=== PATIENT | male | born 1960 | race Caucasian/White ===

== ENCOUNTER 2018-02-11 13:26 | Inpatient (IN) | payer MEDICAID, OTHER ==
--- NOTE | 2018-02-11 14:24 | ED ---
General Adult HPI - General Chief complaint: Psychiatric Symptoms Stated complaint: Mental health Time Seen by Provider: 02/11/18 13:30 Source: police, RN notes reviewed Mode of arrival: ambulatory Limitations: no limitations - History of Present Illness Initial comments: This is a 57-year-old male who is brought in by the police under a court order. Patient was verbally abusive and was threatening to kill the whole city and was extremely agitated. It was determined that the patient needed to be evaluated but the patient refused to be evaluated because he stated his God does not let him be evaluated. He refused so many of his past medical history other than he is completely normal and is free to speak his mind as he sees fit. Patient won't answer any other questions at this time. He denies any physical problems however - Related Data Allergies Allergy/AdvReac Type Severity Reaction Status Date / Time No Known Allergies Allergy Verified 02/11/18 13:36 Review of Systems ROS Statement: Those systems with pertinent positive or pertinent negative responses have been documented in the HPI. ROS Other: All systems not noted in ROS Statement are negative. Past Medical History Past Medical History: No Reported History History of Any Multi-Drug Resistant Organisms: None Reported Past Surgical History: No Surgical Hx Reported Past Psychological History: Anxiety, Bipolar, Depression Smoking Status: Current every day smoker Past Alcohol Use History: None Reported Past Drug Use History: Marijuana General Exam - General Exam Comments Initial Comments: GENERAL: Patient is well-developed and well-nourished. Patient is nontoxic and well- hydrated and is in no acute distress. ENT Neck is soft and supple. No significant lymphadenopathy is noted. Oropharynx is clear. Moist mucous membranes. Neck has full range of motion without eliciting any pain. EYES: The sclera were anicteric and conjunctiva were pink and moist. Extraocular movements were intact and pupils were equal round and reactive to light. Eyelids were unremarkable. PULMONARY: Unlabored respirations. Good breath sounds bilaterally. No audible rales rhonchi or wheezing was noted. CARDIOVASCULAR: There is a regular rate and rhythm without any murmurs gallops or rubs. ABDOMEN: Soft and nontender with normal bowel sounds. SKIN: Skin is clear with no lesions or rashes and otherwise unremarkable. NEUROLOGIC: Patient is alert and oriented x3. Cranial nerves II through XII are grossly intact. Motor and sensory are also intact. Normal speech, volume and content. Symmetrical smile. MUSCULOSKELETAL: Normal extremities with adequate strength and full range of motion. LYMPHATICS: No significant lymphadenopathy is noted PSYCHIATRIC: Patient denies being found or suicidal but he states God won't let him believe the diagnoses from his doctor and he is very agitated and uncooperative Limitations: no limitations Course Vital Signs 02/11/18 13:32 Temperature 97.9 F Pulse Rate 60 Respiratory 18 Rate Blood Pressure 126/48 O2 Sat by Pulse 99 Oximetry Disposition Clinical Impression: Acute psychosis Disposition: ADMITTED IP TO THIS HOSP Referrals: None,Stated [Primary Care Provider] - 1-2 days Time of Disposition: 16:54
[2018-02-11] MEDS ORDERED: LORazepam 2 MG/ML INJ IM STA (16:50)
[2018-02-11] MEDS ORDERED: ZIPRASIDONE 20 MG VIAL IM STA (16:50)
[2018-02-11] MEDS ORDERED: ZIPRASIDONE 20 MG VIAL IM PRN (18:05)
[2018-02-11] MEDS ORDERED: MAG HYDROX/AL HYDROX/SIMETH 30 ML CUP PO PRN (18:05)
[2018-02-11] MEDS ORDERED: MAGNESIUM HYDROXIDE 2,400 MG/10 ML CUP PO PRN (18:05)
[2018-02-11] MEDS ORDERED: ACETAMINOPHEN TAB 325 MG TAB PO PRN (18:05)
[2018-02-11] MEDS ORDERED: LORazepam 1 MG TAB PO PRN (18:05)
[2018-02-11] MEDS ORDERED: LORazepam 2 MG/ML INJ IM PRN (18:07)
--- NOTE | 2018-02-11 22:51 | P.HPMEDMHU ---
History of Present Illness H&P Date: 02/11/18 Chief Complaint: MH U HPI The patient is a 57-year-old male that was brought here to the mental health unit recommended for admission after presenting here with the police officers under court order. Apparently the patient was being increasingly aggressive and threatening and was supposedly pretty paranoid, the patient denied any suicidal or homicidal ideation, but was pretty irate and angry. Patient denies any significant medical history denies any chest pain or shortness of breath, the patient was initially irate and loud but became cooperative with answering questions and allowing me to do a physical, he does report a history of smoking denies any history of alcohol use. Past Medical History Past Medical History: No Reported History History of Any Multi-Drug Resistant Organisms: None Reported Past Surgical History: No Surgical Hx Reported Past Psychological History: Anxiety, Bipolar, Depression Smoking Status: Current every day smoker Past Alcohol Use History: None Reported Past Drug Use History: Marijuana Medications and Allergies Allergies Allergy/AdvReac Type Severity Reaction Status Date / Time No Known Allergies Allergy Verified 02/11/18 13:36 Physical Exam Vitals: Vital Signs Temp Pulse Pulse Resp BP BP Pulse Ox 02/11/18 18:39 97.9 F 55 L 16 127/66 02/11/18 13:32 97.9 F 60 18 126/48 99 Intake and Output 02/11/18 02/11/18 02/11/18 06:59 14:59 22:59 Other: Weight 70.171 kg 69.853 kg Constitutional: No acute distress, conversant Eyes: Anicteric sclerae, moist conjunctiva, no lid-lag, PERRLA ENMT: NC/AT,Oropharynx clear, no erythema, exudates Neck:Supple, FROM, no masses, or JVD, No carotid bruits; No thyromegaly Lungs: Clear to auscultation, Clear to percussion, Normal respiratory effort, no accessory muscle use Cardiovascular: Heart regular in rate and rhythm, No murmurs, gallops, or rubs no peripheral edema Abdominal: Soft Nontender, nom distended, no guarding, no rebound or rigidity, Normoactive bowel sounds No hepatomegaly, No splenomegaly, No palpable mass No abdominal wall hernia noted Skin: Normal temperature, tone, texture, turgor, No induration No subcutaneous nodules, No rash, lesions, No ulcers Extremities:No digital cyanosis No clubbing, Pedal pulses intact and symmetrical Radial pulses intact and symmetrical Normal gait and station, No calf tenderness Psychiatric: Alert and oriented to person, place and time, Appropriate affect Intact judgement Neuro: Muscles Strength 5/5 in all 4 extremities, Sensation to light touch grossly present throughout, Cranial nerves II-XII grossly intact. No focal sensory deficits Cranial Nerve Examination - Cranial Nerves Cranial Nerve II- Optic: Intact Cranial Nerve III- Oculomotor: Intact Cranial Nerve IV- Trochlear: Intact Cranial Nerve V- Trigeminal: Intact Cranial Nerve - Abducens: Intact Cranial Nerve VII- Facial: Intact Cranial Nerve VIII- Auditory: Intact Cranial Nerve IX- Glossopharyngeal: Intact Cranial Nerve X- Vagus: Intact Cranial Nerve XI- Accessory: Intact Cranial Nerve XII- Hypoglossal: Intact Assessment and Plan (1) Acute psychosis Current Visit: Yes Status: Acute Code(s): F23 - BRIEF PSYCHOTIC DISORDER SNOMED Code(s): 37856494 (2) Aggressive behavior of adult Current Visit: Yes Status: Acute Code(s): F60.89 - OTHER SPECIFIC PERSONALITY DISORDERS SNOMED Code(s): 73885425 (3) Smoking Current Visit: Yes Status: Acute Code(s): F17.200 - NICOTINE DEPENDENCE, UNSPECIFIED, UNCOMPLICATED SNOMED Code(s): 82596612 Plan: The patient was admitted to the mental health unit we'll defer to acute inpatient psychiatric team regarding ongoing therapy with psychotropics and CBT the patient's acute psychosis, reports patient was initially agitated and physically aggressive. However with me the patient was conversant, appropriate and was not agitated. He was clearly angry at being petition to come here. The patient denied any chronic medical issues other than smoking and he refused to have a nicotine patch. Patient is otherwise medically stable we'll plan to sign off pending his admission lab work I appreciate the opportunity to be involved in ongoing care of this patient, further questions please hesitate to contact the sound inpatient team.
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
[2018-02-12] MEDS: PALIPERIDONE 6 MG TAB.ER.24 PO SCH (19:57)
[2018-02-12] MEDS ORDERED: ZIPRASIDONE 20 MG VIAL IM ONE (20:30)
[2018-02-12] MEDS ORDERED: ASPIRIN 81 MG PO STA (21:44)
--- NOTE | 2018-02-12 21:58 | P.MHFACE ---
Face to Face Eval of Restraint - Evaluation Patient's Immediate Situation: Endangers others' safety, Endangers staff safety , Violent behavior Patient's Reaction to the Intervention: Angry, Hostile, Aggressive, Combative, Resistive to care Patient's Medical & Behavioral Condition: Awake, Alert, Agitated, Paranoid Need to Continue or Terminate Restraint or Seclusion: Continue (patient also complained of left sided nipple pain / chest pain and neck spasm after his violent behavior and being placed in restraints. however, he declined my offer to get some blood work done and EKG done to rule out ACS.)
[2018-02-12] MEDS ORDERED: ASPIRIN 325 MG TAB PO STA (22:05)
--- NOTE | 2018-02-12 22:31 | XR ---
EXAMINATION TYPE: XR cervical spine limited DATE OF EXAM: 02/12/2018 COMPARISON: NONE HISTORY: Neck pain TECHNIQUE: 3 views FINDINGS: Vertebra have normal alignment. Posterior element are intact. There is mild anterior spurri ng at C4-5 C5-6. Atlantoaxial facet joint is normal. There are no cervical ribs. IMPRESSION: Mild spondylosis in the lower cervical spine. No fracture.
[2018-02-13 03:58] LABS: Basophils # (A) 0.1 k/uL (0-0.2); Basophils % (A) 1 %; Eosinophils # (A) 0.3 k/uL (0-0.7); Eosinophils % (A) 4 %; HCT 43.8 % (39.0-53.0); HGB 14.8 gm/dL (13.0-17.5); Lymphocytes # (A) 2.1 k/uL (1.0-4.8); Lymphocytes % (A) 23 %; MCH 31.4 pg (25.0-35.0); MCHC 33.8 g/dL (31.0-37.0); MCV 92.8 fL (80.0-100.0); Mean Platelet Volume 6.6; Monocytes # (A) 0.4 k/uL (0-1.0); Monocytes % (A) 5 %; Neutrophils # (A) 6.1 k/uL (1.3-7.7); Neutrophils % (A) 67 %; Platelet Count 231 k/uL (150-450); RBC 4.72 m/uL (4.30-5.90); RDW 12.7 % (11.5-15.5); WBC 9.1 k/uL (3.8-10.6)
[2018-02-13 04:09] LABS: ALT 40 U/L (21-72); AST 55 U/L (17-59); Albumin 3.5 g/dL (3.5-5.0); Alkaline Phosphatase 63 U/L (38-126); Anion Gap 8 mmol/L; Blood Urea Nitrogen 14 mg/dL (9-20); Calcium 9.2 mg/dL (8.4-10.2); Carbon Dioxide 24 mmol/L (22-30); Chloride 106 mmol/L (98-107); Glucose 91 mg/dL (74-99); Potassium 3.9 mmol/L (3.5-5.1); Sodium 138 mmol/L (137-145); Total Bilirubin 0.5 mg/dL (0.2-1.3); Total Protein 5.7 g/dL (6.3-8.2)
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
[2018-02-13] MEDS: PALIPERIDONE 6 MG TAB.ER.24 PO SCH (20:46)
--- NOTE | 2018-02-14 17:32 | P.PN ---
Progress Note - Text Progress Note Date: 02/14/18 Interval history: [place] [facility] [place] He was agreeable to come to the interview room after some discussion in his room. He is seen with male staff present. He makes reference to not taking his prescribed medication. He seems to relay that he slept well last night. He wonders about when he will be discharged. Mental status exam: He is alert, cooperative with coming to the interview room. He uses profanity, has evidence of some disorganized thought processes. When asked about attending groups he makes reference/asks if they have a group for child killers. He makes reference to the inside steward/stewardess. He does not seem to verbalize any active thoughts of harm to self or others. He presents as irritable. Plan: We'll continue to monitor for medication compliance. We'll continue to cover this patient for the weekend.
[2018-02-14] MEDS: PALIPERIDONE 6 MG TAB.ER.24 PO SCH (20:48)
--- NOTE | 2018-02-15 13:49 | P.PN ---
Progress Note - Text Progress Note Date: 02/15/18 Interval history: Patient seen again in [facility] today. He is found in the hallway near the dining room where he had his lunch. He is agreeable for the interview in the interview room after initially wanting to talk in the hallway. He relates that he doesn't feel he needs the medication. He makes reference to clinicians at [facility] and the doctors should give him mechanical tools. Makes a reference to the feeling that he has been judged. Mental status exam: He is alert and cooperative with coming to the interview room. His mood is described as "joyous." He does not make any statements about harm to self or others. He does curse during the exam. He does present as irritable. His thought processes show some disorganization. He makes a reference to [facility] clinicians and doctors should give him mechanical tools. Makes reference to feeling that he has been judged. Plan: We'll monitor for medication compliance. Continue to monitor his ongoing status.
[2018-02-15] MEDS: PALIPERIDONE 6 MG TAB.ER.24 PO SCH (22:24)
--- NOTE | 2018-02-16 10:02 | P.PN ---
Progress Note - Text Interval history: The patient is found in his room lying in bed he is awake. He abruptly sits up for the interview. He refers to me as Dr. Vann and a dope pusher. He demands to know when he will be released. He spontaneously describes a variety of persecutory thoughts and uses profanity in a copious fashion. The session was terminated due to his level of agitation. Mental status exam: The patient has a disheveled appearance impaired hygiene. Affect is significantly irritable. He speaks in a loud tone and is verbally aggressive. He demonstrates delusions of persecution which include staff and myself. Insight and judgment are poor. He demonstrates no abnormal involuntary movements. He answers no questions regarding his cognitive status. Plan: The patient remains acutely psychotic and he is refusing antipsychotic medication. He primarily is isolating in his room. Vital signs reviewed. We are awaiting a court hearing. We will continue to monitor him for safety.
[2018-02-16] MEDS: PALIPERIDONE 6 MG TAB.ER.24 PO SCH (21:38)
--- NOTE | 2018-02-17 04:05 | P.PN ---
Progress Note - Text Progress Note Date: 02/17/18 I was called by RN to see patient for chest pain. He reported stabbing left nipple chest pain with no radiation, worse with motion and touch. denies any nausea or vomiting, denies any dizziness. He reports that he had that celso for about 30 days now and refuses to take any pain meds PO. he reported similar chest pain few days ago and had negative cardiac enzymes and negative EKG. EKG done this time, showed sinus bradycardia otherwise asymptomatic. Orthostatic vital sings negative. Chest clear to auscultation bilaterally normal S1 S2 heart sounds, no murmurs, bradycardia in the mid 40s asymptomatic otherwise vital signs stable cycle cardiac enzymes to r/o ACS monitor vital sings patient pain most likely related to muskuloskeletal origin, patient denies any history of CAD he refuses pain meds PO
--- NOTE | 2018-02-17 11:02 | P.PN ---
Progress Note - Text Interval history: The patient is found in his room. Staff report he did get up and eat breakfast in the hallway. He reported he showered. He remains irritable and agitated. He indicates he is frustrated with a male peer. The patient reported again symptoms of chest pain. He has been evaluated again EKG was performed as well as another troponin level. He does have some history of bradycardia. The patient's resting in his room comfortably. Mental status exam: The patient is alert he is a disheveled appearance. He is easily agitated. He continues to refuse medication and demands to be discharged. This demonstrates impaired insight and judgment. He provides no eye contact during the interaction. He uses profanity during the conversation. He demonstrates no physical aggressiveness. He demonstrates no abnormal involuntary movements. He tolerates no further questioning today. Plan: The patient continues to demonstrate symptoms of acute agitation with psychosis. He has been refusing medication. He has been followed by internal medicine with no acute findings. He has a deferral conference scheduled for today and a full court hearing on Friday.
[2018-02-17] MEDS: PALIPERIDONE 6 MG TAB.ER.24 PO SCH (21:16)
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
[2018-02-18] MEDS ORDERED: METHYL SALICYLATE/MENTHOL CREAM 5 OZ TOPICAL PRN ×2 (09:07→09:26)
[2018-02-18] MEDS: PALIPERIDONE 6 MG TAB.ER.24 PO SCH (20:28)
[2018-02-18] MEDS: METHYL SALICYLATE/MENTHOL CREAM 5 OZ TOPICAL PRN (22:14)
[2018-02-19] MEDS: METHYL SALICYLATE/MENTHOL CREAM 5 OZ TOPICAL PRN ×2 (09:18→21:52)
--- NOTE | 2018-02-19 09:49 | P.PN ---
Progress Note - Text Interval history: The patient is found in his room lying in bed. He states that he finds the topical cream helpful for his arthritic pain. He indicates that he does not typically sleep at night and prefers to sleep during the day. Staff have documented he is eating appropriately. He continues to feel persecuted in being placed here in the hospital. He expresses frustration at the petitioner and plans to pursue perjury charges. The patient continues to refuse medication. Mental status exam: The patient is a disheveled male appearing older than his stated age. His hair and white are overgrown. He is lying in bed and is covered with a sheet and blanket. He does have some brief eye contact. He describes paranoid and persecutory thoughts. He endorses no thoughts of harming himself. He expresses feelings of anger towards others but does not describe any plan for harming anyone. Insight and judgment are impaired. He demonstrates no abnormal involuntary movement. He remains lying in bed for the duration of the session and demonstrates no aggressive behavior. He is endorsing no hallucinations. Plan: The patient continues to refuse psychotropic medication for his delusional thought and agitated behavior. He does have a court hearing scheduled for tomorrow morning. Vital signs not available. We will monitor him for safety and provide reality orientation when possible.
[2018-02-19] MEDS: PALIPERIDONE 6 MG TAB.ER.24 PO SCH (21:22)
[2018-02-20] MEDS: METHYL SALICYLATE/MENTHOL CREAM 5 OZ TOPICAL PRN ×2 (01:25→09:39)
--- NOTE | 2018-02-20 11:10 | P.PN ---
Progress Note - Text Interval history: The patient is found in his room lying in bed. He is verbally arousable he sits up for the interview. I met with him prior to going to his court date. He continued to explain to me that as part of the government I am medicating him for no reason. He spoke angrily about the government and court system who allowed his daughter to . He continues to primarily isolate himself in his room other than meals or brief walks. He was somewhat redirectable briefly. He continues to refuse taking psychotropic medication. I was informed that he went to court and demanded an independent medical exam and a jury trial. The court hearing was adjourned for 2 weeks. Mental status exam: The patient's was alert he has a long white his hair is long he has a disheveled appearance. Eye contact is staring in nature. He has spontaneous speech. Overall he remains irritable and agitated. He tries to refrain from using profanity today and draws attention to the fact that he is trying abstain from using profanity in his speech. He indicates feeling persecuted by myself the unit staff and the government. He does not appreciate the reasons for this admission. He demonstrates no insight into his symptoms of psychosis. He demonstrated no agitated behavior directed at me he demonstrates no abnormal involuntary movements. Plan: The patient is prescribed invega he continues to refuse medication. We will encourage compliance with medication to address his psychosis and agitation. We will monitor him for safety and encourage his participation in the milieu as appropriate. Vital signs reviewed he continues to demonstrate bradycardia. He is observed ambulating without ataxia.
[2018-02-20] MEDS: PALIPERIDONE 6 MG TAB.ER.24 PO SCH (21:34)
[2018-02-21] MEDS: METHYL SALICYLATE/MENTHOL CREAM 5 OZ TOPICAL PRN (09:10)
--- NOTE | 2018-02-21 10:50 | P.PN ---
Progress Note - Text Interval history: The patient is found in his room. Prior to entering the room he could be heard speaking loudly to himself. He seemed to be carrying on a conversation. Upon entering the room she indicates that I have not respected my elders. He states that if I want him as a long-term patient I need to discontinue any medication orders other than what he needs. He again indicates I'm part of the government. He states that he has requested an independent medical exam and that person will free him from the hospital. Mental status exam: The patient is alert he is lying in bed he is covered in a blanket and she. Eye contact is appropriate. He speaks with a loud tone and speaks in a very direct manner. He continues to feel that he has been wrongly admitted to the hospital. He refers to me as Dr. Vann and Mr. Estrada and refers to me as being part of the government which has wronged him in many ways. In general he conveys a paranoid and persecutory thought content. He is reporting no thoughts of harming himself or others. He demonstrated no physical aggressiveness he remained in bed during our conversation. Insight and judgment remain impaired. Plan: The patient continues to demonstrate symptoms of psychosis. He continues to refuse antipsychotic medication. He has requested a jury trial including an independent medical exam. Vital signs reviewed he has ongoing bradycardia he reports no dizziness he is able to ambulate without ataxia. He continues to isolate in his room and does not participate in the milieu.
[2018-02-21] MEDS: MENTHOL-CAMPHOR-PHENOL LIP OINTMENT 0.35 OZ TUBE TOPICAL PRN ×2 (13:31→20:08)
[2018-02-21] MEDS: PALIPERIDONE 6 MG TAB.ER.24 PO SCH (20:10)
[2018-02-22] MEDS: METHYL SALICYLATE/MENTHOL CREAM 5 OZ TOPICAL PRN (00:20)
--- NOTE | 2018-02-22 12:20 | P.PN ---
Progress Note - Text Interval history: The patient is found in his room. He is verbally arousable. He defers participating in a session today. He does not wish to speak in an interview room. He is rather dismissive. Mental status exam: The patient is alert lying in bed he is covered with his blanket. He makes no eye contact today no spontaneous speech. He provides brief answers to questions asked. He demonstrates no acute distress he demonstrates no abnormal involuntary movements. Insight and judgment impaired. Plan: The patient's is being offered invega which he is refusing. He is awaiting a independent medical exam and jury trial. If given the opportunity we will provide reality orientation. We'll continue to monitor him for safety.
[2018-02-22] MEDS: PALIPERIDONE 6 MG TAB.ER.24 PO SCH (20:26)
[2018-02-23] MEDS: METHYL SALICYLATE/MENTHOL CREAM 5 OZ TOPICAL PRN (02:14)
--- NOTE | 2018-02-23 09:57 | P.PN ---
Progress Note - Text Interval history: The patient is found in his room he is lying in bed awake. The patient states that he is waiting for his independent medical exam. He plans on becoming that person's long-term patient. He plans on the individual performing the NIYAH to set him free. He describes myself and other clinicians as monsters. He states I'm trying to prescribe him a dope pill that he does not need. He demands at a chiropractor come in and adjust his back. He is asked if anything else can be done to help him with his pain and he reports no. He continues to speak of people "purgering" themselves and he implies that we are all part of the government working against him. Mental status exam: The patient is a disheveled male he is lying in bed. He is irritable in terms of affect is easily agitated. He makes derogatory statements area he spontaneously describes paranoid persecutory thoughts. He is reporting no thoughts of harming himself or others. He demonstrates no physical aggressiveness. He is endorsing no auditory or visual hallucinations. He remains alert throughout the session he has spontaneous speech that is pressured he is verbose. Insight and judgment are impaired area no abnormal involuntary movements observed. Plan: The patient continues to refuse medication. We have not been able to have a discussion regarding any antipsychotic medication. He is being offered invega 6 mg in the evening which he has consistently refused. Vital signs reviewed we will monitor him for safety. He is encouraged to get out of bed and ambulate.
[2018-02-23] MEDS: PALIPERIDONE 6 MG TAB.ER.24 PO SCH (20:07)
[2018-02-24] MEDS ORDERED: NAPROXEN 250 MG TAB PO PRN (10:47)
--- NOTE | 2018-02-24 10:54 | P.PN ---
Progress Note - Text Interval history: The patient's is found in his room he is lying in bed. He is awake. Staff report that he continues to sleep during the day and be awake at night. He is noted to ambulate a few times during the day and in the evening he will sit in the back hallway. He does not wish to discuss any psychotropic medication options. We continued to offer invega and he has consistently refused that medication. He indicates he will not take medication and is awaiting his court hearing. He describes being discriminated against in terms of access to food. Mental status exam: The patient is a disheveled appearance his white and hair are long and unkempt. Eye contact is intermittent. He is a very direct manner of speaking and overall remains irritable in terms of affect. He uses no profanity today he becomes loud at times and then de-escalates. He is observed talking to himself after our session and has concluded. He is reporting no thoughts of harming himself or others. Continues to have paranoid persecutory thoughts. Insight and judgment are impaired. He demonstrates no abnormal involuntary movements. Plan: The patient continues to demonstrate symptoms of psychosis. The patient continues to refuse the invega. He does not wish to engage in a conversation regarding alternatives to invega that would be appropriate. He feels he is here erroneously and is awaiting his independent medical exam and jury trial. Vital signs reviewed.
[2018-02-24] MEDS: PALIPERIDONE 6 MG TAB.ER.24 PO SCH (19:55)
[2018-02-24] MEDS: BACITRACIN 500 UNIT/GM OINT 28.4 GM TUBE TOPICAL SCH (21:32)
--- NOTE | 2018-02-25 09:37 | XR ---
EXAM TYPE: LUMBAR SPINE X RAY SERIES COMPARISON: NONE HISTORY: Lower back pain TECHNIQUE: 3 views are submitted. FINDINGS: Alignment is anatomic. The pedicles are intact. The transverse processes are intact. There is mult ilevel degenerative disc disease and hypertrophic changes. Vascular calcifications noted. IMPRESSION: 1. Multilevel degenerative disc disease.
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
[2018-02-25] MEDS: BACITRACIN 500 UNIT/GM OINT 28.4 GM TUBE TOPICAL SCH ×2 (10:05→21:06)
[2018-02-25] MEDS: METHYL SALICYLATE/MENTHOL CREAM 5 OZ TOPICAL PRN (10:06)
--- NOTE | 2018-02-25 13:56 | CT ---
EXAMINATION TYPE: CT Cerv Thoracic spine wo con DATE OF EXAM: 02/25/2018 COMPARISON: NONE HISTORY: 57-year-old male Upper back and neck pain with radicular symptoms TECHNIQUE: Contiguous axial scanning of the cervical and thoracic spine without IV contrast. Coronal and sagittal reconstructions performed. CT DLP: 1205.2 mGycm Automated exposure control for dose reduction was used. FINDINGS: Cervical spine: No craniocervical junction abnormality, predental space widening, or prevertebral soft tissue swellin g. While there is preserved alignment of the cervical spine, there is reversal of the normal cervical lo rdosis. Moderate disc/endplate changes present from C4 through C6 levels with disc space narrowing and disc o steophyte complex formation. Disc osteophyte complex at C6-C7 and causes mild spinal canal narrowing. Assessment of the spinal can al from C5-C6 and below is limited due to artifact from the patient's shoulders. Scattered facet and uncovertebral joint degenerative changes present. At C5-C6, changes result in moderate left neuroforaminal stenosis. At C6/C7, changes result in moderate left and mild right neuroforaminal stenosis. Ectatic ascending aorta 3.9 cm. Mild centrilobular emphysema is noted in the lungs. Thoracic spine: Vertebral body heights are preserved and alignment is maintained. Scattered facet degenerative change. Subtle lucency along the anterior superior corner of the T2 vertebral body, sagittal image 52 and axi al image 94. Additional sites severe endplate sclerosis of T3 and minimal endplate deformity of T3, r eference sagittal image 53 and coronal image 42. However, no paravertebral soft tissue swelling is id entified. Mild multilevel degenerative disc disease throughout the thoracic spine. No significant spinal canal stenosis identified by CT Variable mild neuroforaminal narrowing in the upper thoracic spine. IMPRESSION: CERVICAL SPINE: 1. MODERATE DISC/ENDPLATE DEGENERATIVE CHANGE FROM C4 THROUGH C6 LEVELS. SCATTERED FACET AND UNCOVERT EBRAL JOINT ARTHROPATHY WELL. 2. CHANGES RESULT IN MODERATE LEFT NEURAL FORAMINAL STENOSIS AT C5-C6 AND MODERATE LEFT WITH MILD RIG HT NEURAL FORAMINAL STENOSIS AT C6/C7. 3. PRESERVED ALIGNMENT BUT WITH REVERSAL OF THE NORMAL CERVICAL LORDOSIS. DISC OSTEOPHYTE COMPLEX MIL DLY NARROWS THE SPINAL CANAL AT C6-C7. 4. ECTATIC ASCENDING AORTA 3.9 CM. COPD WITH MILD EMPHYSEMA. THORACIC SPINE: 1. SUBTLE LUCENCIES ALONG THE ANTERIOR SUPERIOR CORNERS OF THE T2 AND T3 VERTEBRAL BODIES AND SLIGHT SUPERIOR ENDPLATE DEFORMITY OF T3. SMALL NONDISPLACED SUPERIOR ENDPLATE FRACTURES ARE DIFFICULT TO EX CLUDE. CORRELATE FOR INJURY IN THIS PATIENT. 2. OVERALL VERTEBRAL BODY HEIGHTS ARE PRESERVED. ALIGNMENT IS MAINTAINED. 3. NO CANAL COMPROMISE. VARIABLE MILD BILATERAL NEUROFORAMINAL STENOSES IN THE UPPER THORACIC SPINE.
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
[2018-02-25] MEDS: GABAPENTIN 100 MG CAP PO SCH ×2 (16:22→21:07)
[2018-02-25] MEDS: MENTHOL-CAMPHOR-PHENOL LIP OINTMENT 0.35 OZ TUBE TOPICAL PRN (21:05)
[2018-02-25] MEDS: PALIPERIDONE 6 MG TAB.ER.24 PO SCH (21:07)
[2018-02-26] MEDS ORDERED: BENZOCAINE 20 % GEL 15 GM TUBE MM PRN (03:30)
[2018-02-26] MEDS: METHYL SALICYLATE/MENTHOL CREAM 5 OZ TOPICAL PRN ×2 (04:52→21:41)
[2018-02-26] MEDS: GABAPENTIN 100 MG CAP PO SCH ×3 (09:59→21:50)
[2018-02-26] MEDS: BACITRACIN 500 UNIT/GM OINT 28.4 GM TUBE TOPICAL SCH ×2 (09:59→21:49)
[2018-02-26] MEDS: MELOXICAM 7.5 MG TAB PO SCH (10:03)
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
--- NOTE | 2018-02-26 16:25 | P.PN ---
Progress Note - Text Progress Note Date: 02/26/18 Patient requesting to be evaluated for right lower tooth pain after breaking up to while eating candy, patient is already refused medical therapy such as Orajel to treat his pain. Limited exam of his mouth, does not show any signs of abscess formation around his molar area. Patient will need to be referred to a dentist on discharge
[2018-02-26] MEDS: PALIPERIDONE 6 MG TAB.ER.24 PO SCH (21:49)
[2018-02-27] MEDS: METHYL SALICYLATE/MENTHOL CREAM 5 OZ TOPICAL PRN (01:47)
[2018-02-27] MEDS: BACITRACIN 500 UNIT/GM OINT 28.4 GM TUBE TOPICAL SCH ×2 (08:37→22:03)
[2018-02-27] MEDS: GABAPENTIN 100 MG CAP PO SCH ×3 (08:37→22:03)
[2018-02-27] MEDS: MELOXICAM 7.5 MG TAB PO SCH (08:37)
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
--- NOTE | 2018-02-27 11:16 | P.PN ---
Progress Note - Text Interval history: The patient is found in his room he is lying in bed. He does not wish to speak to me in an interview room. He is covered with a blanket which includes covering his face. He speaks to me through the blanket. He has been seen by internal medicine again for his fractured tooth no intervention was recommended at this time. He has been seen by orthopedics regarding his complaint of back pain. No intervention was recommended other than prescribing meloxicam and Neurontin. The patient is refusing both of those medications. Regarding his tooth he states he will not take her antibiotics if we prescribed them and he will pull it out himself if he needs to. He states he doesn't believe he is receiving good medical care as he feels the doctors are uncertain as to what they are doing. He continues to refuse the invega. The patient does have an independent medical exam scheduled for sometime next week. Mental status exam: The patient is alert he communicates verbally through his blanket this morning. He only speaks about his recent interaction with the internal medicine physician regarding his fractured tooth. The patient's insight and judgment remain impaired. He continues to have a delusional thought content that is paranoid persecutory in nature. He is demonstrating no verbal or physical aggressiveness at this time no abnormal involuntary movements observed. Plan: The patient is scheduled to have an independent medical exam next week. We will await the outcome of that evaluation. His court date is scheduled for March 13. We will monitor him for safety we will provide reality orientation when possible. We will continue offering the invega. Vital signs reviewed. We have medically evaluated his fractured tooth and his complaint of pain with consultants.
[2018-02-27] MEDS: PALIPERIDONE 6 MG TAB.ER.24 PO SCH (22:03)
[2018-02-28] MEDS: BACITRACIN 500 UNIT/GM OINT 28.4 GM TUBE TOPICAL SCH ×2 (08:50→19:57)
[2018-02-28] MEDS: GABAPENTIN 100 MG CAP PO SCH ×3 (08:50→19:57)
[2018-02-28] MEDS: MELOXICAM 7.5 MG TAB PO SCH (08:50)
--- NOTE | 2018-02-28 10:11 | P.PN ---
Progress Note - Text Progress Note Date: 02/28/18 Interval History: The patient is a 57-year-old male who has an apparent history of a chronic schizophrenia. He presented to unit involuntarily. I reviewed the medical record and attempted to interview the patient. He was laying in his room and denied problems or concerns. He was not hostile, angry or verbally aggressive. She is refusing psychotropic medications and over the last 24 hours has not required IM or by mouth medications for behavioral dyscontrol. He does not attend therapeutic groups or activities. According to the nursing sleep log he only slept 1 hour last night. Mental status exam: He presented as disheveled-appearing elderly male with long sylvester hair and a white. He made eye contact and appeared to attend to the interview. He had a blunted facial expression. He showed slight psychomotor retardation but no abnormal movements. His speech was not spontaneous but had normal rate and rhythm. His affect was blunted but stable and appropriate. He denied suicidal ideation, wishes or homicidal ideation. During our interview he did not express ideas reference, paranoid ideation or delusional beliefs. His thinking was concrete and his associations appeared coherent. He denied hallucinations and did not appear to be responding to internal stimuli. Plan: He has requested an independent psychiatric evaluation and a jury trial. The court hearing is scheduled for March 13. Continue inpatient psychiatric hospitalization. Continue safety precautions. Continue to offer Invega 6 mg by mouth daily. Encourage participation in therapeutic groups and activities. Evaluate clinical status response to treatment on a daily basis.
[2018-02-28] MEDS: PALIPERIDONE 6 MG TAB.ER.24 PO SCH (19:57)
[2018-03-01] MEDS: METHYL SALICYLATE/MENTHOL CREAM 5 OZ TOPICAL PRN (01:58)
[2018-03-01] MEDS: GABAPENTIN 100 MG CAP PO SCH ×3 (09:47→20:08)
[2018-03-01] MEDS: BACITRACIN 500 UNIT/GM OINT 28.4 GM TUBE TOPICAL SCH ×2 (09:47→20:08)
[2018-03-01] MEDS: MELOXICAM 7.5 MG TAB PO SCH (09:48)
--- NOTE | 2018-03-01 09:50 | P.PN ---
Progress Note - Text Progress Note Date: 03/01/18 Interval History: The patient is a 57-year-old male who has a history of a chronic schizophrenia. He presented to unit involuntarily. He denies that he has a mental illness, requires psychiatric treatment and maintains that the admission to the hospital was unnecessary and illegal. He refuses psychotropic medications and has demanded an independent psychiatric evaluation and a probate jury trial. He is posed no management problem and required no medications for behavioral dyscontrol. He does not attend therapeutic groups and activities. According to the nurses assessment he did not sleep last night. Mental Status Exam: He presented as a tall, thin and disheveled elderly male with long sylvester hair and white. He is laying in bed and did not get up with the interview. He was angry about this hospitalization and his involvement with the mental health system. He talked about the need to [place] "the doctors", community mental health, this hospital, "the courts", "the pilates instructor's" and DHS; "maybe if I hurt their pocket books they would leave me alone". His speech was spontaneous with slight increased rate but normal rhythm and volume. His affect was angry, irritable and intense. He did not express suicidal ideation, wishes or homicidal ideation. He ruminated about this hospitalization, legal system and past injustices. He did not express ideas reference but was paranoid and described a broad paranoid and persecutory delusions. His thinking was concrete but his associations were coherent and logical. He perseverated on issues of justice and injustices. He did not express neologisms or blocking. He denied hallucinations and did not appear to be responding to internal stimuli. Plan: Continue inpatient psychiatric hospitalization pending the probate jury time trial on 03/13/2018. Considering the level of his paranoia he would benefit from an antipsychotic medication. Continue to offer Invega 6 mg daily. Encourage, much is possible, participation in therapeutic groups and activities. Evaluate clinical status response to treatment on a daily basis.
[2018-03-01] MEDS: PALIPERIDONE 6 MG TAB.ER.24 PO SCH (20:08)
[2018-03-02] MEDS: BACITRACIN 500 UNIT/GM OINT 28.4 GM TUBE TOPICAL SCH ×2 (10:23→21:00)
[2018-03-02] MEDS: MELOXICAM 7.5 MG TAB PO SCH (10:24)
[2018-03-02] MEDS: GABAPENTIN 100 MG CAP PO SCH ×3 (10:24→21:00)
--- NOTE | 2018-03-02 11:18 | P.PN ---
Progress Note - Text Interval history: The patient is found in his room he is lying in bed. He indicates that he is awake but he keeps his face covered he makes no eye contact with me. He does not engage in conversation he provides a few brief responses to questions asked. He continues to refuse antipsychotic medication. He is scheduled to have an independent medical examination today at [facility]. Mental status exam: The patient is a thin male with long hair and a long white. His room has a follow odor but he indicates he showered yesterday. No eye contact. He engages in no spontaneous speech she provides brief answers to only a few questions. No abnormal involuntary movements. No verbal or physical aggressiveness during our interaction. He continues to feel he has been wrongly admitted and persecuted by several groups of individuals. Insight and judgment are impaired. He indicates no thoughts of wanting to harm himself or others. Plan: The patient will undergo the independent medical exam we will await those results. We will continue to offer the invega to address his paranoid and persecutory thinking. He requires continued psychiatric hospitalization. Vital signs reviewed.
[2018-03-02] MEDS: PALIPERIDONE 6 MG TAB.ER.24 PO SCH (21:00)
[2018-03-03] MEDS: GABAPENTIN 100 MG CAP PO SCH ×3 (08:28→20:18)
[2018-03-03] MEDS: BACITRACIN 500 UNIT/GM OINT 28.4 GM TUBE TOPICAL SCH ×2 (08:28→20:18)
[2018-03-03] MEDS: MELOXICAM 7.5 MG TAB PO SCH (08:28)
--- NOTE | 2018-03-03 10:24 | P.PN ---
Progress Note - Text Interval history: The patient is found in his room he is lying in bed. He provides no responses to questions asked this morning. He did participate in an evaluation yesterday at an outside clinic. His next court date is not until March 13. Staff reported that he ate all of his breakfast. He continues to not sleep well at night but does sleep during the day. I did observe him earlier this morning ambulating in the hallway and he was standing at the phone for several minutes without talking. Mental status exam: The patient's is awake he is lying in bed he provides no verbal responses to questions asked. He is in no acute distress respirations appear to be at a normal rate. He demonstrates no agitated behavior no abnormal involuntary movements. Insight and judgment remain impaired. Affect is flat he has a disheveled appearance with a long white and long sylvester hair. Plan: The patient is being offered antipsychotic medication for his symptoms of psychosis. He has consistently refused since he has been here. We will await the next court appearance. We will monitor him for safety. He is choosing to isolate in his room for most of the day.
[2018-03-03] MEDS: PALIPERIDONE 6 MG TAB.ER.24 PO SCH (20:18)
[2018-03-04] MEDS: MELOXICAM 7.5 MG TAB PO SCH (10:44)
--- NOTE | 2018-03-04 11:10 | P.PN ---
Progress Note - Text Interval history: The patient's is found in his room he is resting he does participate somewhat in the session today. He indicates that he does not feel that I'm a doctor. He does not feel that he is being cared for here. He describes having leg pain and indicates he has a large black bruise from his knee down to his foot. He shows me his leg and there is no such bruise. He discusses the [facility] interaction and states it was very agitating. 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 He states the court should speed up his next hearing date. The patient' reportedly continues to isolate in his room other than getting out for meals and a brief walk. He indicates that he showers but his room is foul-smelling. Mental status exam: The patient is a thin male he has long white hair with a long white white. He is dressed in his underwear and is covered and that she. The room is malodorous. He provides very brief eye contact today. He does have spontaneous speech. He remains verbally agitated he is accusational. He discusses several topics that reveal a paranoid and persecutory thought content. Insight and judgment remain impaired. He demonstrated no physical aggressiveness he demonstrates no abnormal involuntary movements. Affect is agitated. He reports no thoughts of harming himself or others. Plan: The patient's continues to refuse medication we are awaiting his next court hearing date. We will monitor him for safety. He requires continued psychiatric hospitalization due to the severity of his psychosis.
[2018-03-04] MEDS: BACITRACIN 500 UNIT/GM OINT 28.4 GM TUBE TOPICAL SCH ×2 (11:24→20:58)
[2018-03-04] MEDS: GABAPENTIN 100 MG CAP PO SCH ×3 (11:24→20:59)
[2018-03-04] MEDS: PALIPERIDONE 6 MG TAB.ER.24 PO SCH (20:58)
[2018-03-05] MEDS: GABAPENTIN 100 MG CAP PO SCH ×3 (09:28→20:11)
[2018-03-05] MEDS: MELOXICAM 7.5 MG TAB PO SCH (09:28)
[2018-03-05] MEDS: BACITRACIN 500 UNIT/GM OINT 28.4 GM TUBE TOPICAL SCH ×2 (09:28→20:11)
--- NOTE | 2018-03-05 10:27 | P.PN ---
Progress Note - Text Interval history: The patient is found in his room he is lying in bed awake. He asks when we will stop "screwing with my livelihood and my welfare". He indicates we are playing games to keep him from working. He continues to state we are not real doctors as we do not care about his health. He continues to refuse antipsychotic medication. He isolates in his room for most of the day. He will get out to briefly walk and he will go down for meals. Mental status exam: The patient is found in his room he is lying in bed he is covered with a sheet. The room is malodorous. He has a disheveled appearance. He is observed talking out loud to himself prior to our interaction. He reports feeling frustrated that he is still in the hospital. He is endorsing no hallucinations. He spontaneously reports paranoid and persecutory thoughts mainly regarding this hospitalization area insight and judgment are impaired. He demonstrates no physical aggressiveness he demonstrates no abnormal involuntary movements. He reports having no thoughts of harming himself or others. Plan: The patient's continues to refuse antipsychotic medication. We are awaiting his next court date on March 13. We will monitor him for safety. He is encouraged to frequently ambulate during the day and to reduce isolation and his room. He continues to adequately eat.
[2018-03-05] MEDS: PALIPERIDONE 6 MG TAB.ER.24 PO SCH (20:11)
[2018-03-06] MEDS: BACITRACIN 500 UNIT/GM OINT 28.4 GM TUBE TOPICAL SCH ×2 (08:22→20:07)
[2018-03-06] MEDS: MELOXICAM 7.5 MG TAB PO SCH (08:23)
[2018-03-06] MEDS: GABAPENTIN 100 MG CAP PO SCH ×3 (08:23→20:07)
--- NOTE | 2018-03-06 11:03 | P.PN ---
Progress Note - Text Interval history: The patient's found in his room. He again is lying in bed. He does not wish to speak to me in an interview room. He indicates that he is eating. He chronically is up all night and sleeps during the day. He continues to refuse the antipsychotic medication. He has not been complying with other medications prescribed for reported pain. Staff report that he is ambulatory more at night. No agitated behavior in the last 24 hours. Mental status exam: The patient is a thin male he has a disheveled appearance his hair and white are unkempt. He is lying in bed eye contact is poor as he keeps his face covered. He does not respond to several questions. He does make a statement indicating continued paranoid and persecutory thinking. Insight and judgment are poor. He is reporting no thoughts of harming himself or others. He demonstrates no abnormal involuntary movements. He demonstrates no physical aggressiveness during our interaction. He refuses to answer orientation questions today. Plan: The patient's is awaiting his next court date of March 13. He has been refusing the invega to treat his symptoms of psychosis. Vital signs reviewed. We'll continue to monitor him for safety.
[2018-03-06] MEDS: PALIPERIDONE 6 MG TAB.ER.24 PO SCH (20:07)
[2018-03-07] MEDS: GABAPENTIN 100 MG CAP PO SCH ×3 (09:27→20:21)
[2018-03-07] MEDS: MELOXICAM 7.5 MG TAB PO SCH (09:27)
[2018-03-07] MEDS: BACITRACIN 500 UNIT/GM OINT 28.4 GM TUBE TOPICAL SCH ×2 (09:27→20:21)
[2018-03-07] MEDS: PALIPERIDONE 6 MG TAB.ER.24 PO SCH (20:21)
[2018-03-07 20:53] LABS: Appearance,Urine Clear (Clear); Bilirubin,Urine Negative (Negative); Blood,Urine Negative (Negative); Color,Urine Light Yellow; Glucose,Urine (UA) Negative (Negative); Ketones,Urine Negative (Negative); Leukocyte Esterase,Urine Negative (Negative); Nitrite,Urine Negative (Negative); Protein,Urine Negative (Negative); Specific Gravity,Urine 1.012 (1.001-1.035); Urobilinogen,Urine <2.0 mg/dL (<2.0)
[2018-03-07 21:08] LABS: Amphetamine Screen,Urine Not Detected (NotDetected); Barbiturate Screen,Urine Not Detected (NotDetected); Benzodiazepines Screen,Urine Not Detected (NotDetected); Cocaine Screen,Urine Not Detected (NotDetected); Methadone Screen, Urine Not Detected (NotDetected); Opiate Screen,Urine Not Detected (NotDetected); Oxycodone Screen, Urine Not Detected (NotDetected); Phencyclidine Screen,Urine Not Detected (NotDetected); Tricyclic Antidepressant,Urine Not Detected (NotDetected); Urn Cannabinoid Scrn Not Detected (NotDetected)
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
[2018-03-08] MEDS: MELOXICAM 7.5 MG TAB PO SCH (09:16)
[2018-03-08] MEDS: BACITRACIN 500 UNIT/GM OINT 28.4 GM TUBE TOPICAL SCH ×2 (09:16→20:47)
[2018-03-08] MEDS: GABAPENTIN 100 MG CAP PO SCH ×3 (09:16→20:47)
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
[2018-03-08] MEDS: PALIPERIDONE 6 MG TAB.ER.24 PO SCH (20:47)
[2018-03-09] MEDS: GABAPENTIN 100 MG CAP PO SCH ×3 (08:10→20:11)
[2018-03-09] MEDS: BACITRACIN 500 UNIT/GM OINT 28.4 GM TUBE TOPICAL SCH ×2 (08:10→20:11)
[2018-03-09] MEDS: MELOXICAM 7.5 MG TAB PO SCH (08:10)
--- NOTE | 2018-03-09 10:14 | P.PN ---
Progress Note - Text Interval history: The patient is found in his room. He is lying in bed but moves to a seated position during our interaction. He was offered an opportunity to meet in an interview room. He is much more agitated this morning. He states that I'm part of the government that killed his daughter. He states I'm discriminating against him for not allowing him to have a neck brace. We examined the prescribed neck brace and it is not safe on this mental health unit as it can be easily fashioned into a device to hang oneself. He states that the staff are providing poor care. In the evening he has been arranging his pillows under his sheet to appear as if it is a person and he has been hiding in the corner of the room trying to deceive the staff that he is in bed. He believes he is fooling them into thinking it is a real person in bed. He states that he has turned myself and the staff into the state. He is angry that we are offering antipsychotic medication. He states this is exactly the way he was in the [facility]. Mental status exam: The patient's is a male with a disheveled appearance and poor hygiene. His room is malodorous. He is more agitated today. He has a staring eye contact and speaks with an aggressive tone. He demonstrates no physical aggressiveness. He reports no thoughts of harming himself or others. He continues to describe paranoid and persecutory auditory thinking that impacts his insight and judgment. The session was terminated as the patient seemed to be verbally escalating. The patient would ask questions but would not allow me to respond. He would continue to talk in a loud fashion. At the end of our session after I left the room and the door was closed he could be heard yelling to himself making derogatory statements. He did not tolerate any cognitive questioning today. Plan: The patient remains psychotic. He continues to refuse antipsychotic medication. The patient was observed sitting up and moving about without difficulty. Physically he is in no acute distress. He has a court appearance on March 13. The prescribed neck brace is not appropriate for use on this mental health unit especially given the patient's symptoms of psychosis and unpredictable behavior. Vital signs reviewed. We will provide reality orientation when possible. Continue to monitor him for safety.
[2018-03-09] MEDS: PALIPERIDONE 6 MG TAB.ER.24 PO SCH (20:11)
[2018-03-10 08:59] VITALS: BMI 21.1
[2018-03-10] MEDS: GABAPENTIN 100 MG CAP PO SCH ×3 (09:29→21:12)
[2018-03-10] MEDS: BACITRACIN 500 UNIT/GM OINT 28.4 GM TUBE TOPICAL SCH ×2 (09:29→21:12)
[2018-03-10] MEDS: MELOXICAM 7.5 MG TAB PO SCH (09:30)
[2018-03-10] MEDS: PALIPERIDONE 6 MG TAB.ER.24 PO SCH (21:12)
[2018-03-11] MEDS: GABAPENTIN 100 MG CAP PO SCH ×3 (08:31→20:06)
[2018-03-11] MEDS: BACITRACIN 500 UNIT/GM OINT 28.4 GM TUBE TOPICAL SCH ×2 (08:31→20:05)
[2018-03-11] MEDS: MELOXICAM 7.5 MG TAB PO SCH (08:31)
--- NOTE | 2018-03-11 14:57 | P.PN ---
Progress Note - Text Progress Note Date: 03/11/18 Interval history: I reviewed the medical record and attempted to interview the patient. He was laying in bed, would not make eye contact and would not answer questions. In the hallway he would not acknowledge my greeting or speak with me. Mental status exam He is an elderly male who is laying in bed. His room was very malodorous. He refused to make eye contact or speak. In the hallway, he is irritable and appears internally preoccupied. Plan: He continues to refuse psychotropic medications. We are waiting a jury trial for involuntary hospitalization. He has a court appointment for March 13. Continue safety precautions.
[2018-03-11] MEDS: PALIPERIDONE 6 MG TAB.ER.24 PO SCH (20:05)
[2018-03-12] MEDS: MELOXICAM 7.5 MG TAB PO SCH (08:49)
[2018-03-12] MEDS: BACITRACIN 500 UNIT/GM OINT 28.4 GM TUBE TOPICAL SCH ×2 (08:49→21:05)
[2018-03-12] MEDS: GABAPENTIN 100 MG CAP PO SCH ×3 (08:49→21:05)
--- NOTE | 2018-03-12 16:49 | P.PN ---
Progress Note - Text Progress Note Date: 03/12/18 Interval history: I reviewed the medical record, attempted to interview the patient and discuss his treatment and treatment plan during team meeting. He would not make eye contact or respond to my greeting. I attempted to interview him in his room he yelled "get the fuck out of my room." He does not attend therapeutic groups or activities. He does not initiate contact with staff or peers. Mental status exam: He is an elderly male who was lying in bed. His illness very malodorous. He refused to make eye contact or speak with me. He is irritable and angry. In the hallway he wears a soft neck collar and appears internally preoccupied. Plan: He continues to refuse psychotropic medications. We are waiting a jury trial for involuntary hospitalization. He has a court appointment scheduled for March 13. Continue safety precautions.
[2018-03-12] MEDS: PALIPERIDONE 6 MG TAB.ER.24 PO SCH (21:05)
[2018-03-13] MEDS: GABAPENTIN 100 MG CAP PO SCH ×3 (08:52→19:38)
[2018-03-13] MEDS: MELOXICAM 7.5 MG TAB PO SCH (08:52)
[2018-03-13] MEDS: BACITRACIN 500 UNIT/GM OINT 28.4 GM TUBE TOPICAL SCH ×2 (08:52→19:38)
--- NOTE | 2018-03-13 17:10 | P.PN ---
Progress Note - Text Progress Note Date: 03/13/18 Interval history: I reviewed the medical record, attempted to interview the patient and discuss his treatment and treatment plan during team meeting. He had a probate court appointment this morning but I was not required to provide testimony. When he returned I asked him about the outcome of the probate hearing. He was angry and uncooperative. He accused me and "Dr. Palomares" of being paranoid; "I am not paranoid. You are paranoid. Your both paranoid." We have violating his rights because we triy to speak with him when he is in his room. 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 Mental status exam. He presented as a thin irritable, angry and paranoid elderly male who did not make eye contact. He had an angry facial expression. He was laying in bed and would not get up with interview. His speech was spontaneous, loud, angry and intense. His affect was inappropriately angry. He was paranoid. He did not express clear ideas reference or paranoid delusional beliefs. His thinking was concrete and not logical coherent. He did not appear to be responding to internal stimuli. Plan: He continues to refuse psychotropic medication. He denies that he is mental illness or requires psychiatric treatment. We are waiting a turn trial for involuntary hospitalization. Continue safety precautions.
[2018-03-13] MEDS: PALIPERIDONE 6 MG TAB.ER.24 PO SCH (19:38)
[2018-03-14] MEDS: GABAPENTIN 100 MG CAP PO SCH ×3 (09:23→19:41)
[2018-03-14] MEDS: MELOXICAM 7.5 MG TAB PO SCH (09:23)
[2018-03-14] MEDS: BACITRACIN 500 UNIT/GM OINT 28.4 GM TUBE TOPICAL SCH ×2 (09:23→19:41)
[2018-03-14] MEDS: PALIPERIDONE 6 MG TAB.ER.24 PO SCH (14:12)
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
[2018-03-15] MEDS: BACITRACIN 500 UNIT/GM OINT 28.4 GM TUBE TOPICAL SCH ×2 (08:49→21:54)
[2018-03-15] MEDS: MELOXICAM 7.5 MG TAB PO SCH (08:49)
[2018-03-15] MEDS: GABAPENTIN 100 MG CAP PO SCH ×3 (08:49→21:55)
[2018-03-15] MEDS ORDERED: PALIPERIDONE IM 234 MG/1.5 ML SYG IM STA (14:54)
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
[2018-03-16] MEDS: BACITRACIN 500 UNIT/GM OINT 28.4 GM TUBE TOPICAL SCH ×2 (10:01→21:17)
[2018-03-16] MEDS: GABAPENTIN 100 MG CAP PO SCH ×3 (10:01→21:17)
[2018-03-16] MEDS: MELOXICAM 7.5 MG TAB PO SCH (10:02)
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
[2018-03-17] MEDS: MELOXICAM 7.5 MG TAB PO SCH (09:04)
[2018-03-17] MEDS: BACITRACIN 500 UNIT/GM OINT 28.4 GM TUBE TOPICAL SCH ×2 (09:04→22:15)
[2018-03-17] MEDS: GABAPENTIN 100 MG CAP PO SCH ×3 (09:04→22:15)
--- NOTE | 2018-03-17 11:50 | P.PN ---
Progress Note - Text Interval history: The patient's is found in his room he is awake. He does not wish to speak in an interview room. He continues to verbalize delusional thought content. He is demanding to be released. We discussed the invega systemic injection that he received and that if he is going to continue with that treatment course we would recommend he get the second dose on Friday. He indicates he plans on receiving the second dose and wants to be discharged as soon as possible afterwards. I told him that we will need to monitor him after that second dose and we need to see that the medication is providing some benefit. Mental status exam: The patient is alert he has a disheveled appearance his room is malodorous. He speaks fairly constantly during our interaction not allowing me much opportunity to provide responses. He describes a variety of paranoid and persecutory thoughts mainly directed at myself and other recovering covering psychiatrist. He continues to feel persecuted by the court and [facility]. He reports that we are experimenting on him with dope. Insight and judgment are limited. He demonstrates no physical aggressiveness. He does become loud during our session and uses profanity. He demonstrates no abnormal involuntary movements. Plan: The patient requires continued hospitalization. He has a meeting with his regulatory attorney this morning to discuss his options. If he is agreeable we will plan on giving him the second dose of Invega Sustenna on Friday. We continue to assess his functioning on daily basis to determine his need for hospitalization. Vital signs reviewed.
[2018-03-18] MEDS: BACITRACIN 500 UNIT/GM OINT 28.4 GM TUBE TOPICAL SCH ×2 (08:16→20:24)
[2018-03-18] MEDS: MELOXICAM 7.5 MG TAB PO SCH (08:17)
[2018-03-18] MEDS: GABAPENTIN 100 MG CAP PO SCH (08:17)
--- NOTE | 2018-03-18 10:50 | P.PN ---
Progress Note - Text Interval history: The patient is found in his room. He is agreeable to speaking with me in the library. He did meet with his watershed program manager yesterday at his request and he signed a deferral agreement for treatment. We discussed giving him the second invega systemic injection on Friday and he is agreeable. He had questions regarding the medication and those were addressed. He continues to assert that he does not believe in mental illness and he believes he is being given the medication inappropriately. We discussed goals he needs to accomplish prior to discharge. We discussed that if he demonstrates an ability to control his speech and behavior and attend to his ADLs we will consider a discharge Friday. Mental status exam: The patient is alert he has long white hair and a long white white. He is ambulating with the use of a cane. Eye contact is appropriate. He is much more cooperative today in terms of behavior. He allows me to speak during the interview with fewer interruptions. He does not raise his voice during our conversation. He continues to have a delusional thought content. He continues to verbalize persecutory thoughts. He reports no thoughts of harming himself or others. His thought process was more organized today. Insight and judgment impaired but improved today. He remains oriented. He demonstrates no verbal or physical aggressiveness. Plan: The patient is demonstrating improvement in his behavior. He does still have symptoms of psychosis. We will continue to plan on giving him the second injection of Invega Sustenna on Friday. If appropriate we will consider discharging him on Friday. He is not willing to participate in groups. He is encouraged to continue appropriately eating bathing and sufficiently ambulating during the day rather than staying in bed.
[2018-03-19] MEDS: BACITRACIN 500 UNIT/GM OINT 28.4 GM TUBE TOPICAL SCH ×2 (08:11→23:00)
--- NOTE | 2018-03-19 09:52 | P.PN ---
Progress Note - Text Interval history: The patient is found in the hallway he follows me to an interview room specifically the library. He has no questions regarding our plan for medication treatment. Again we discussed initiating the second dose of Invega sustenna tomorrow. He expresses some concern about community mental health knowing where he will reside upon discharge. We discussed the importance of us knowing where his residence will be upon discharge. He is asked to give this more consideration and we will discuss further tomorrow. He discusses his concern about returning to the same clinician and describes feelings of animosity towards him. He made statements that he would challenge that individual to a physical altercation. We discussed consequences of violent acts towards others. He continues to sleep during the day appetite is stable. He is demonstrating no verbal or physical aggressiveness over the last 2 days. We discussed his meeting with his contract attorney. He was also seen by a [employer] representative from child protective services. Mental status exam: The patient is a 57-year-old male appearing older than his stated age. He has a disheveled appearance he has long white hair and a long white white. He is thin. He is dressed in his own clothing. Eye contact is appropriate today he maintains a calm demeanor during our interaction. He did not raise his voice and he uses no profanity directed at me. He demonstrated no physical aggressiveness. He continues to describe feelings of persecution from community mental health myself in the court. He continues to have little insight into his symptoms of psychosis. He is describing no hallucinations. He demonstrates no abnormal involuntary movements. He demonstrated no tangential thinking loose associations or flight of ideas. Plan: The patient will receive the second dose of Invega Sustenna tomorrow. We will discuss his case again in team meeting including the community mental health liaison. We will discuss his safety risk and appropriateness for discharge. We will continue to monitor him for safety. Vital signs are reviewed they're within normal limits.
[2018-03-20 05:41] VITALS: BP 134/72; PULSE 58; RESP 16; TEMP 98.1
[2018-03-20] MEDS ORDERED: PALIPERIDONE IM 156 MG/ML SYG IM ONE (09:36)
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
[2018-03-20] MEDS: BACITRACIN 500 UNIT/GM OINT 28.4 GM TUBE TOPICAL SCH (11:02)
== END 2018-03-20 15:30 | disposition home or self-care (01) | DRG 885 ==
LOC: EC 13:26 → 3MHU 17:59
PROVIDERS: ADMIT Psychiatry & Neurology Psychiatry; ATTEND Psychiatry & Neurology Psychiatry
DX: F20.9 Schizophrenia, unspecified (principal); F17.200 Nicotine dependence, unspecified, uncomplicated; F60.2 Antisocial personality disorder; M54.12 Radiculopathy, cervical region; M51.34 Other intervertebral disc degeneration, thoracic region; Z63.4 Disappearance and death of family member; Z78.1 Physical restraint status; R45.1 Restlessness and agitation; F43.12 Post-traumatic stress disorder, chronic; M51.36 Other intervertebral disc degeneration, lumbar region
CPT/HCPCS: 72040; 72100; 72125; 72128; 80053; 80306; 81003; 82075; 84443; 84484; 85025; 93005; 99285

== ENCOUNTER 2021-05-15 13:54 | Observation (INO) | payer OTHER ==
[2021-05-15] MEDS ORDERED: NITROGLYCERIN OINT 1 INCH/GM PACKET TOPICAL STA (14:25)
[2021-05-15] MEDS ORDERED: ASPIRIN 81 MG PO STA (14:25)
--- NOTE | 2021-05-15 14:38 | ED ---
General Adult HPI - General Chief complaint: Chest Pain Stated complaint: Chest Pain Time Seen by Provider: 05/15/21 14:05 Source: patient, police, RN notes reviewed, old records reviewed Mode of arrival: ambulatory Limitations: no limitations - History of Present Illness Initial comments: This is a 60-year-old male who [facility] emergency [facility]. Patient states he has chest pain on a regular basis and is been ongoing for 20 years. Patient states today he got worse while he was in [facility] normally takes an aspirin and it goes away but in general he has no access to aspirin so he told the guards and they brought him to the hospital. Patient states it's a little better now but it did radiate to his axilla on the left. Patient does state he is a smoker and he does have a family history of heart disease. Patient denies diabetes hypertension high cholesterol. Patient denied any diaphoretic episodes. Patient denies any lightheadedness or dizziness. Patient denies any palpitations. Patient denies any abdominal pain patient denies nausea vomiting diarrhea. Patient denies any recent fever chills or cough. - Related Data Previous Rx's Medication Instructions Recorded Paliperidone IM [Invega Sustenna] 117 mg IM ONCE #1 syr 03/20/18 Allergies Allergy/AdvReac Type Severity Reaction Status Date / Time No Known Allergies Allergy Verified 05/15/21 14:12 Review of Systems ROS Statement: Those systems with pertinent positive or pertinent negative responses have been documented in the HPI. ROS Other: All systems not noted in ROS Statement are negative. Past Medical History Past Medical History: No Reported History History of Any Multi-Drug Resistant Organisms: None Reported Past Surgical History: No Surgical Hx Reported Past Psychological History: Anxiety, Bipolar, Depression Smoking Status: Current every day smoker Past Alcohol Use History: None Reported Past Drug Use History: Marijuana General Exam - General Exam Comments Initial Comments: GENERAL: Patient is well-developed and well-nourished. Patient is nontoxic and well- hydrated and is in no acute distress. ENT: Neck is soft and supple. No significant lymphadenopathy is noted. Oropharynx is clear. Moist mucous membranes. Neck has full range of motion without eliciting any pain. EYES: The sclera were anicteric and conjunctiva were pink and moist. Extraocular movements were intact and pupils were equal round and reactive to light. Eyeli ds were unremarkable. PULMONARY: Unlabored respirations. Good breath sounds bilaterally. No audible rales rhonchi or wheezing was noted. CARDIOVASCULAR: There is a regular rate and rhythm without any murmurs gallops or rubs. Femoral pulses are equal bilaterally ABDOMEN: Soft and nontender with normal bowel sounds. No palpable organomegaly was noted. There is no palpable pulsatile mass. SKIN: Skin is clear with no lesions or rashes and otherwise unremarkable. NEUROLOGIC: Patient is alert and oriented x3. Cranial nerves II through XII are grossly intact. Motor and sensory are also intact. Normal speech, volume and content. Symmetrical smile. MUSCULOSKELETAL: Normal extremities with adequate strength and full range of motion. No lower extremity swelling or edema. No calf tenderness. LYMPHATICS: No significant lymphadenopathy is noted PSYCHIATRIC: Normal psychiatric evaluation. Limitations: no limitations Course Vital Signs 05/15/21 05/15/21 14:04 15:17 Temperature 98.3 F Pulse Rate 42 L Pulse Rate [ 40 L Sitting Pulse Oximetery] Respiratory 16 Rate Blood Pressure 106/59 O2 Sat by Pulse 97 Oximetry Medical Decision Making - Medical Decision Making EKG shows marked sinus bradycardia at 39 bpm AK interval 232 QRS is 88 QT interval 500 QTC is 42. Patient's EKG shows no ST segment elevation or depression. Patient states he still has chest pain but is not like it was previously. I spoke with some physicians agreed to admit the patient admitted the patient wrote admitting orders. - Lab Data Result diagrams: 05/15/21 14:55 05/15/21 14:55 Lab Results 05/15/21 05/15/21 05/15/21 Range/Units 14:55 14:55 14:55 WBC 5.8 (3.8-10.6) k/uL RBC 4.41 (4.30-5.90) m/uL Hgb 14.5 (13.0-17.5) gm/dL Hct 42.6 (39.0-53.0) % MCV 96.6 (80.0-100.0) fL MCH 32.9 (25.0-35.0) pg MCHC 34.0 (31.0-37.0) g/dL RDW 11.8 (11.5-15.5) % Plt Count 195 (150-450) k/uL MPV 7.5 Neutrophils % 57 % Lymphocytes % 31 % Monocytes % 6 % Eosinophils % 3 % Basophils % 2 % Neutrophils # 3.3 (1.3-7.7) k/uL Lymphocytes # 1.8 (1.0-4.8) k/uL Monocytes # 0.4 (0-1.0) k/uL Eosinophils # 0.2 (0-0.7) k/uL Basophils # 0.1 (0-0.2) k/uL PT 10.6 (9.0-12.0) sec INR 1.0 (<1.2) APTT 24.3 (22.0-30.0) sec Sodium 136 L (137-145) mmol/L Potassium 4.2 (3.5-5.1) mmol/L Chloride 105 (98-107) mmol/L Carbon Dioxide 25 (22-30) mmol/L Anion Gap 6 mmol/L BUN 17 (9-20) mg/dL Creatinine 0.90 (0.66-1.25) mg/dL Est GFR (CKD-EPI)AfAm >90 (>60 ml/min/1.73 sqM) Est GFR (CKD-EPI)NonAf >90 (>60 ml/min/1.73 sqM) Glucose 116 H (74-99) mg/dL Calcium 9.3 (8.4-10.2) mg/dL Magnesium 2.1 (1.6-2.3) mg/dL Total Bilirubin 0.4 (0.2-1.3) mg/dL AST 27 (17-59) U/L ALT 13 (4-49) U/L Alkaline Phosphatase 68 (38-126) U/L Troponin I (0.000-0.034) ng/mL Total Protein 6.3 (6.3-8.2) g/dL Albumin 3.9 (3.5-5.0) g/dL 05/15/21 Range/Units 14:55 WBC (3.8-10.6) k/uL RBC (4.30-5.90) m/uL Hgb (13.0-17.5) gm/dL Hct (39.0-53.0) % MCV (80.0-100.0) fL MCH (25.0-35.0) pg MCHC (31.0-37.0) g/dL RDW (11.5-15.5) % Plt Count (150-450) k/uL MPV Neutrophils % % Lymphocytes % % Monocytes % % Eosinophils % % Basophils % % Neutrophils # (1.3-7.7) k/uL Lymphocytes # (1.0-4.8) k/uL Monocytes # (0-1.0) k/uL Eosinophils # (0-0.7) k/uL Basophils # (0-0.2) k/uL PT (9.0-12.0) sec INR (<1.2) APTT (22.0-30.0) sec Sodium (137-145) mmol/L Potassium (3.5-5.1) mmol/L Chloride (98-107) mmol/L Carbon Dioxide (22-30) mmol/L Anion Gap mmol/L BUN (9-20) mg/dL Creatinine (0.66-1.25) mg/dL Est GFR (CKD-EPI)AfAm (>60 ml/min/1.73 sqM) Est GFR (CKD-EPI)NonAf (>60 ml/min/1.73 sqM) Glucose (74-99) mg/dL Calcium (8.4-10.2) mg/dL Magnesium (1.6-2.3) mg/dL Total Bilirubin (0.2-1.3) mg/dL AST (17-59) U/L ALT (4-49) U/L Alkaline Phosphatase (38-126) U/L Troponin I <0.012 (0.000-0.034) ng/mL Total Protein (6.3-8.2) g/dL Albumin (3.5-5.0) g/dL Disposition Clinical Impression: Bradycardia, Chest pain Disposition: ADMITTED IP TO THIS HOSP Referrals: None,Stated [Primary Care Provider] - 1-2 days Time of Disposition: 15:43
[2021-05-15 15:06] LABS: Basophils # (A) 0.1 k/uL (0-0.2); Basophils % (A) 2 %; Eosinophils # (A) 0.2 k/uL (0-0.7); Eosinophils % (A) 3 %; HCT 42.6 % (39.0-53.0); HGB 14.5 gm/dL (13.0-17.5); Lymphocytes # (A) 1.8 k/uL (1.0-4.8); Lymphocytes % (A) 31 %; MCH 32.9 pg (25.0-35.0); MCV 96.6 fL (80.0-100.0); Mean Platelet Volume 7.5; Monocytes # (A) 0.4 k/uL (0-1.0); Monocytes % (A) 6 %; Neutrophils # (A) 3.3 k/uL (1.3-7.7); Neutrophils % (A) 57 %; Platelet Count 195 k/uL (150-450); RBC 4.41 m/uL (4.30-5.90); RDW 11.8 % (11.5-15.5); WBC 5.8 k/uL (3.8-10.6)
[2021-05-15 15:14] LABS: ALT 13 U/L (4-49); AST 27 U/L (17-59); African American GFR (CKD) >90 (>60 ml/min/1.73 sqM); Albumin 3.9 g/dL (3.5-5.0); Alkaline Phosphatase 68 U/L (38-126); Anion Gap 6 mmol/L; Blood Urea Nitrogen 17 mg/dL (9-20); Calcium 9.3 mg/dL (8.4-10.2); Carbon Dioxide 25 mmol/L (22-30); Chloride 105 mmol/L (98-107); Glucose 116 mg/dL (74-99); Magnesium 2.1 mg/dL (1.6-2.3); Non-African American GFR(CKD) >90 (>60 ml/min/1.73 sqM); Potassium 4.2 mmol/L (3.5-5.1); Sodium 136 mmol/L (137-145); Total Bilirubin 0.4 mg/dL (0.2-1.3); Total Protein 6.3 g/dL (6.3-8.2)
[2021-05-15 15:19] LABS: Partial Thromboplastin Time 24.3 sec (22.0-30.0); Prothrombin Time 10.6 sec (9.0-12.0)
[2021-05-15] MEDS ORDERED: NITROGLYCERIN SL TABS 0.4 MG TAB SUBLINGUAL PRN (15:43)
--- NOTE | 2021-05-15 15:49 | XR ---
EXAMINATION TYPE: XR chest 2V DATE OF EXAM: 05/15/2021 COMPARISON: NONE HISTORY: Chest pain into left arm. TECHNIQUE: Frontal and lateral views of the chest are obtained. FINDINGS: There is background chronic emphysematous change without suspicious focal air space opacit y, pleural effusion, or pneumothorax seen. The cardiac silhouette size is within normal limits. Ove rlying EKG leads. The osseous structures are intact. IMPRESSION: Chronic emphysematous change without acute pulmonary process.
[2021-05-15] MEDS ORDERED: MAG HYDROX/AL HYDROX/SIMETH 30 ML, HYOSCYAMINE ELIXIR 10 ML, LIDOCAINE VISCOUS 2% 10 ML PO ONE ×3 (16:45)
[2021-05-15] MEDS ORDERED: IPRATROPIUM-ALBUTEROL 3 ML NEB INHALATION PRN (16:46)
--- NOTE | 2021-05-15 16:49 | P.HPIM ---
<Rene Amin - Last Filed: 05/15/21 16:32> History of Present Illness H&P Date: 05/15/21 History of Presenting Illness: Patient is a 60-year-old male with a past medical history of nicotine dependence, COPD, and psychiatric disorders presented to the emergency department in custody of [employer] with a chief complaint of chest pain. Patient reports today while pacing back and fourth in his cell, he began to develop chest pain to his left anterior chest which radiated into his left axilla. Patient states this current episode of chest pain has been waxing and w aning for the past 3 days and has been worse at night. He reports that he has had similar pain to this on and off for the past 20 years and he typically just takes an aspirin and it goes away, but when he told his [employer], they brought him to the ER to be evaluated. In the emergency department, an EKG was completed revealing sinus bradycardia at 39 bpm with no noted T-wave or ST abnormalities. Chest x-ray showing chronic emphysematous changes without acute pulmonary process. Troponin less than 0.012. CBC, CMP, and coagulation profile unremarkable. Patient received aspirin 324 mg by mouth 1 dose and Nitro-Bid ointment and admitted under our services with consultation to cardiology. Upon evaluation at bedside. Patient reports the chest pain felt like a burning sensation throughout the left side of his chest radiating into his axilla. Patient denies anything making this pain better, but states pain is worse at night when he lies down. He denies experiencing any diaphoresis, headache, lightheadedness, dizziness, changes in vision or hearing, palpitations, shortness of breath, dyspnea with exertion, abdominal pain, nausea, vomiting, or experiencing any numbness/tingling/weakness/swelling in his extremities. Vital signs stable with the exception of bradycardic rate. Review of systems: Pertinent positives and negatives as discussed in HPI, a complete review of systems was performed and all other systems are negative. Physical exam: Vital signs reviewed and stable. General: Nontoxic, no distress and appears stated age. Derm: Skin warm and dry, normal coloration for ethnicity. Head: Atraumatic, normocephalic and symmetric. Eyes: EOMs intact, no lid lag, and anicteric sclera Mouth: no lip lesions, mucus membranes moist Cardiovascular: Regular rhythm with bradycardic rate, normal S1S2, no murmur, positive posterior tibial pulses bilaterally, and cap refill < 2 seconds. Lungs: Respirations even, regular, and unlabored on room air. Lungs with diffuse expiratory wheezes bilaterally, no rhonchi, rales, or crackles noted. No accessory muscle usage.. Abdominal: soft, nontender to palpation, no guarding, no appreciable organomegaly Ext: ROM intact. No gross muscle atrophy, no edema, no contractures Neuro: Speech clear, face symmetrical and CN II-XII grossly intact with no noted focal neuro deficits Psych: Alert and oriented to person, place, time, and situation. Appropriate and pleasant affect. Assessment and Plan of Care: Bradycardia Atypical Chest pain -EKG revealing sinus bradycardia at 39 bpm with no noted T-wave or ST abnormalities. -Troponin less than 0.012. -Cardiology consult -Telemetry monitoring -Echocardiogram -Trend troponins -Cardiac diet, nothing by mouth at midnight -Daily aspirin and atorvastatin -Lipid profile and Hgb A1c with a.m. labs. -We will administer a GI cocktail consisting of Maalox, Hycosamine, and viscous lidocaine x1 dose secondary to patient's reports of burning sensation. COPD with long-standing history of nicotine dependence -Chest x-ray showing chronic emphysematous changes without acute pulmonary process. -Duonebs as needed for breath and/or wheezing. -Incentive spirometry -Oxygenation as needed to maintain SpO2 equal to or greater than 90%. Psychiatric disorders including anxiety, depression, and bipolar disorder; Patient currently incarcerated and not on a daily medication regimen -Provide safe and symptomatic care. The patient is admitted with an anticipated less than 2 midnight stay for evaluation of chest pain and bradycardia CODE STATUS: Full code DVT prophylaxis: Heparin Discussed with: Patient and RN Anticipated discharge date: 1-[address]: home A total of 45 minutes was spent on the care of this complex patient more than 50% of the time was spent in counseling and care coordination. Past Medical History Past Medical History: No Reported History, COPD History of Any Multi-Drug Resistant Organisms: None Reported Past Surgical History: No Surgical Hx Reported Past Psychological History: Anxiety, Bipolar, Depression Smoking Status: Current every day smoker Past Alcohol Use History: None Reported Past Drug Use History: Marijuana Medications and Allergies Home Medications Medication Instructions Recorded Confirmed Type No Known Home Medications 05/15/21 05/15/21 History Allergies Allergy/AdvReac Type Severity Reaction Status Date / Time No Known Allergies Allergy Verified 05/15/21 16:00 Physical Exam Vitals: Vital Signs Temp Pulse Pulse Resp BP Pulse Ox 05/15/21 15:17 40 L 05/15/21 14:04 98.3 F 42 L 16 106/59 97 Intake and Output 05/15/21 05/15/21 05/15/21 06:59 14:59 22:59 Other: Weight 68.039 kg Results CBC & Chem 7: 05/15/21 14:55 05/15/21 14:55 Labs: Abnormal Lab Results - Last 24 Hours (Table) 05/15/21 Range/Units 14:55 Sodium 136 L (137-145) mmol/L Glucose 116 H (74-99) mg/dL <Rhoda Pritchard - Last Filed: 05/15/21 17:27> Physical Exam Vitals: Vital Signs Temp Pulse Pulse Resp BP Pulse Ox 05/15/21 16:07 38 L 18 116/58 98 05/15/21 15:17 40 L 05/15/21 14:04 98.3 F 42 L 16 106/59 97 Intake and Output 05/15/21 05/15/21 05/15/21 06:59 14:59 22:59 Other: Weight 68.039 kg Results CBC & Chem 7: 05/15/21 14:55 05/15/21 14:55 Labs: Abnormal Lab Results - Last 24 Hours (Table) 05/15/21 Range/Units 14:55 Sodium 136 L (137-145) mmol/L Glucose 116 H (74-99) mg/dL Assessment and Plan Plan: Patient presented with chest pain and bradycardia. We will rule out ACS. Continue telemetry monitoring and to trend troponin. Awaiting cardiology evaluation. Check thyroid function test.
--- NOTE | 2021-05-15 17:13 | ECHOF ---
Referral Reason:chest pain and bradycardia MEASUREMENTS -------- HEIGHT: 180.3 cm WEIGHT: 68.0 kg BP: 116/58 RVIDd: 3.9 cm (< 3.3) IVSd: 0.9 cm (0.6 - 1.1) LVIDd: 5.4 cm (3.9 - 5.3) LVPWd: 1.1 cm (0.6 - 1.1) IVSs: 1.1 cm LVIDs: 3.6 cm LVPWs: 1.6 cm LAESV Index (A-L): 36.85 ml/m Ao Diam: 2.9 cm (2.0 - 3.7) AV Cusp: 2.2 cm (1.5 - 2.6) LA Diam: 4.1 cm (2.7 - 3.8) MV EXCURSION: 22.198 mm (> 18.000) MV EF SLOPE: 104 mm/s (70 - 150) EPSS: 1.1 cm MV E Prince: 0.55 m/s MV DecT: 198 ms MV A Prince: 0.44 m/s MV E/A Ratio: 1.26 AR PHT: 1043 ms RAP: 5.00 mmHg RVSP: 30.43 mmHg FINDINGS -------- Resting bradycardia (HR<60bpm). This was a technically adequate study. The left ventricular size is normal. Left ventricular wall thickness is normal. Overall left vent ricular systolic function is low-normal with, an EF between 50 - 55 %. The right ventricle is mild to moderately enlarged. LA is moderately dilated 34-39 ml/m2 The right atrium is mildly enlarged. Interatrial and interventricular septum intact. There is [id number] aortic regurgitation. There is no evidence of aortic stenosis. Mild mitral regurgitation is present. Mild tricuspid regurgitation present. There is no evidence of pulmonary hypertension. The right v entricular systolic pressure, as measured by Doppler, is 30.43mmHg. There is no pulmonic regurgitation present. The aortic root size is normal. Normal inferior vena cava with normal inspiratory collapse consistent with estimated right atrial pre ssure of 5 mmHg. There is no pericardial effusion. CONCLUSIONS -------- 1. The left ventricular size is normal. 2. Left ventricular wall thickness is normal. 3. Overall left ventricular systolic function is low-normal with, an EF between 50 - 55 %. 4. The right ventricle is mild to moderately enlarged. 5. LA is moderately dilated 34-39 ml/m2 6. The right atrium is mildly enlarged. 7. There is [id number] aortic regurgitation. 8. Mild mitral regurgitation is present. 9. Mild tricuspid regurgitation present. CAPACITOR INSPECTOR: Liza Bustillo RDCS
[2021-05-15] MEDS: ATORVASTATIN 40 MG TAB PO SCH (20:19)
[2021-05-16] MEDS: HEPARIN SODIUM,PORCINE/PF 5,000 UNIT/0.5 ML SYRINGE SQ SCH ×3 (00:53→16:51)
[2021-05-16] MEDS: PANTOPRAZOLE 40 MG TABLET PO SCH (07:57)
[2021-05-16] MEDS ORDERED: DOBUTamine DRIP for NUC MED 500 MG in DEXTROSE/WATER 1 250ML.BAG IV PRN (08:17)
[2021-05-16] MEDS ORDERED: ASPIRIN 325 MG TAB PO SCH (09:00)
[2021-05-16] MEDS ORDERED: NICOTINE 14MG/24HR PATCH TRANSDERM SCH (09:00)
--- NOTE | 2021-05-16 09:37 | P.CRDCN ---
History of Present Illness Consult date: 05/16/21 History of present illness: HISTORY OF PRESENT ILLNESS: This is a 60-year-old male with a past medical history significant for nicotine dependence. Patient does not follow with a environmental advisor. We have been asked to see the patient in consultation for chest pain. Patient examined at the bedside. Patient is currently incarcerated. Patient states he has had chest pain on and off for the past 20 years since being tazzed by the police. He reports the pain increased about three days ago. He states the pain was a burning sensation in the middle of his chest and radiated to his left armpit. He states the pain is worse with chest wall palpation. Not worse with deep inspiration. He states the pain is improved with nitro paste. He states he had a stress test about 10 years ago that was normal to his knowledge. He is a current smoker and smokes about a pack a day. Denies drug or alcohol use. Denies family history of coronary artery disease. EKG on arrival was sinus bradycardia with a heart rate in the 30s. Patient states his heart rate has always ran low and about 10 years ago, a physician recommended a pacemaker but he declined. He denies dizziness or lightheadedness. He denies any syncopal episodes. EKG reveals sinus bradycardia with no signs of acute ischemia Chest xray chronic emphysematous changes without acute pulmonary process Laboratory data: WBC 5.8. Hemoglobin 14.5. Platelet count 195. Sodium 136. Potassium 4.2. BUN 17. Creatinine 0.90. Magnesium 2.1. Current home cardiac medications include none Echocardiogram completed revealed ejection fraction 50-55%. [id number] aortic regurgitation. Mild mitral regurgitation. Mild tricuspid regurgitation REVIEW OF SYSTEMS: At the time of my exam: CONSTITUTIONAL: Denies fever or chills. HEENT: Denies blurred vision, vision changes, or eye pain. Denies hemoptysis CARDIOVASCULAR: Denies chest pain. Denies orthopnea. Denies PND. Denies palpitations RESPIRATORY: Denies shortness of breath. GASTROINTESTINAL: Denies abdominal pain. Denies nausea or vomiting. HEMATOLOGIC: Denies bleeding disorders. GENITOURINARY: Denies any blood in urine. SKIN: Denies pruitis. Denies rash. PHYSICAL EXAM: VITAL SIGNS: Reviewed. GENERAL: Well-developed in no acute distress. HEENT: Head is normocephalic. Pupils are equal, round. Sclerae anicteric. Mucous membranes of the mouth are moist. Neck supple. No JVD or thyromegaly LUNGS: Respirations even and unlabored. Lungs essentially clear to auscultation bilaterally. HEART: Regular rate and rhythm. S1 and S2 heard. ABDOMEN: Soft. Nondistended. Nontender. EXTREMITIES: Normal range of motion. No clubbing or cyanosis. Peripheral pulses intact. No lower extremity edema NEUROLOGIC: Awake and alert. Oriented x 3. ASSESSMENT: Chest pain, atypical, troponin negative x 3 Asymptomatic bradycardia Nicotine dependence PLAN: An acute coronary event has been ruled out Decrease aspirin to 81mg daily Continue lipitor. Obtain lipid panel. Smoking cessation encouraged Continue telemetry monitoring Patient to undergo Dobutamine stress echo today Further recommendations pending patient course Nurse practitioner note has been reviewed by physician. Signing provider agrees with the documented findings, assessment, and plan of care. Past Medical History Past Medical History: No Reported History, COPD History of Any Multi-Drug Resistant Organisms: None Reported Past Surgical History: No Surgical Hx Reported Past Psychological History: Anxiety, Bipolar, Depression Smoking Status: Current every day smoker Past Alcohol Use History: None Reported Past Drug Use History: Marijuana Medications and Allergies Home Medications Medication Instructions Recorded Confirmed Type No Known Home Medications 05/15/21 05/15/21 History Allergies Allergy/AdvReac Type Severity Reaction Status Date / Time No Known Allergies Allergy Verified 05/15/21 16:00 Physical Exam Vitals: Vital Signs Temp Pulse Pulse Pulse Resp BP BP 05/16/21 08:08 98.1 F 35 L 14 111/50 05/15/21 23:46 38 L 18 100/52 05/15/21 21:00 35 L 18 106/59 05/15/21 19:00 37 L 18 113/63 05/15/21 16:07 38 L 18 116/58 05/15/21 15:17 40 L 05/15/21 14:04 98.3 F 42 L 16 106/59 Pulse Ox 05/16/21 08:08 96 05/15/21 23:46 96 05/15/21 21:00 96 05/15/21 19:00 99 05/15/21 16:07 98 05/15/21 15:17 05/15/21 14:04 97 Intake and Output 05/15/21 05/16/21 05/16/21 22:59 06:59 14:59 Other: # Voids 1 Weight 68.039 kg Results 05/15/21 14:55 05/15/21 14:55 Cardiac Enzymes 05/15/21 05/15/21 05/15/21 Range/Units 14:55 14:55 20:06 AST 27 (17-59) U/L Troponin I <0.012 <0.012 (0.000-0.034) ng/mL 05/15/21 Range/Units 23:21 AST (17-59) U/L Troponin I <0.012 (0.000-0.034) ng/mL Coagulation 05/15/21 Range/Units 14:55 PT 10.6 (9.0-12.0) sec APTT 24.3 (22.0-30.0) sec CBC 05/15/21 Range/Units 14:55 WBC 5.8 (3.8-10.6) k/uL RBC 4.41 (4.30-5.90) m/uL Hgb 14.5 (13.0-17.5) gm/dL Hct 42.6 (39.0-53.0) % Plt Count 195 (150-450) k/uL Comprehensive Metabolic Panel 05/15/21 Range/Units 14:55 Sodium 136 L (137-145) mmol/L Potassium 4.2 (3.5-5.1) mmol/L Chloride 105 (98-107) mmol/L Carbon Dioxide 25 (22-30) mmol/L BUN 17 (9-20) mg/dL Creatinine 0.90 (0.66-1.25) mg/dL Glucose 116 H (74-99) mg/dL Calcium 9.3 (8.4-10.2) mg/dL AST 27 (17-59) U/L ALT 13 (4-49) U/L Alkaline Phosphatase 68 (38-126) U/L Total Protein 6.3 (6.3-8.2) g/dL Albumin 3.9 (3.5-5.0) g/dL Current Medications Generic Name Dose Route Start Last Admin Trade Name Freq PRN Reason Stop Dose Admin Albuterol/Ipratropium 3 ml 05/15/21 16:46 Ipratropium-Albuterol 3 Ml Neb INHALATION RT-Q2H PRN Shortness Of Breath Or Wheezing Aspirin 81 mg 05/16/21 09:00 Aspirin 81 Mg PO DAILY CY Atorvastatin Calcium 40 mg 05/15/21 21:00 05/15/21 20:19 Atorvastatin 40 Mg Tab PO 40 mg HS CY Administration Heparin Sodium (Porcine) 5,000 unit 05/16/21 00:00 05/16/21 07:57 Heparin Sodium,Porcine/Pf 5,000 Unit/0.5 Ml Syringe SQ 5,000 unit Q8HR CY Administration Dobutamine HCl/Dextrose 500 mg 250 mls @ 20.412 mls/hr 05/16/21 08:17 / IV Solution IV 05/16/21 12:17 .[id number] PRN Per Protocol Protocol 10 MCG/KG/MIN Nitroglycerin 0.4 mg 05/15/21 15:43 Nitroglycerin Sl Tabs 0.4 Mg Tab SUBLINGUAL Q5M PRN Chest Pain Pantoprazole Sodium 40 mg 05/16/21 07:30 05/16/21 07:57 Pantoprazole 40 Mg Tablet PO 40 mg [id number] CY Administration Intake and Output 05/15/21 05/16/21 05/16/21 22:59 06:59 14:59 Other: # Voids 1 Weight 68.039 kg 05/15/21 14:55 05/15/21 14:55
[2021-05-16] MEDS ORDERED: ACETAMINOPHEN TAB 325 MG TAB PO PRN (11:07)
[2021-05-16] MEDS: ASPIRIN 81 MG PO SCH (11:11)
[2021-05-16 11:26] LABS: HCT 41.6 % (39.6-50.0); HGB 13.7 g/dL (13.0-17.0); MCH 31.1 pg (27.0-32.0); MCHC 32.9 g/dL (32.0-37.0); MCV 94.5 fL (80.0-97.0); Mean Platelet Volume 10.6 fL (9.5-12.2); Platelet Count 220 X 10*3/uL (140-440); RDW 12.6 % (11.5-14.5); WBC 6.33 X 10*3/uL (4.50-10.00)
[2021-05-16] MEDS ORDERED: ATROPINE SULFATE 0.1 MG/ML 10ML SYRINGE ONE (12:50)
[2021-05-16 12:58] LABS: Anion Gap 7.1 mmol/L (4.00-12.00); BUN/Creat Ratio 16.67 Ratio (12.00-20.00); Calcium 9.1 mg/dL (8.7-10.3); Carbon Dioxide 24.9 mmol/L (21.6-31.8); Chol/HDL Ratio 2.14; Non-African American GFR(CKD) 93.2 (60.0-200.0); Potassium 4.4 mmol/L (3.5-5.5)
--- NOTE | 2021-05-16 14:56 | P.PN ---
Subjective Progress Note Date: 05/16/21 Feels okay normal nausea no vomiting no dizziness. Chest pain currently resolved. Objective - Vital Signs Vital signs: Vital Signs Temp 98.1 F 05/16/21 08:08 Pulse 35 L 05/16/21 08:08 Resp 14 05/16/21 08:08 BP 111/50 05/16/21 08:08 Pulse Ox 96 05/16/21 08:08 Intake & Output 05/15/21 05/16/21 05/16/21 18:59 06:59 18:59 Weight 68.039 kg Other: # Voids 1 - Exam Constitutional: No acute distress, conversant, pleasant Eyes: Anicteric sclerae, moist conjunctiva, no lid-lag, PERRLA ENMT: NC/AT,Oropharynx clear Neck:Supple, FROM, no masses, or JVD Lungs: Clear to auscultation, Clear to percussion, Normal respiratory effort, no accessory muscle use Cardiovascular: Heart regular in rate and rhythm, No murmurs, gallops, or rubs no peripheral edema Abdominal: Soft Nontender, non distended, no guarding, no rebound or rigidity Skin: Normal temperature, tone, texture, turgor, No induration No subcutaneous nodules, No rash, lesions, No ulcers Extremities:No digital cyanosis No clubbing, Pedal pulses intact and symmetrical Radial pulses intact and symmetrical Normal gait and station, No calf tenderness Psychiatric: Alert and oriented to person, place and time, Appropriate affect Intact judgement Neuro: Muscles Strength 5/5 in all 4 extremities, Sensation to light touch grossly present throughout, Cranial nerves II-XII grossly intact. No focal sensory deficits - Labs CBC & Chem 7: 05/16/21 07:32 05/16/21 07:32 Labs: Abnormal Lab Results - Last 24 Hours (Table) 05/15/21 Range/Units 14:55 Sodium 136 L (137-145) mmol/L Glucose 116 H (74-99) mg/dL Assessment and Plan Plan: Bradycardia with history of bradycardia in the past, patient has previously refused pacemaker placement. Atypical Chest pain -EKG revealing sinus bradycardia at 39 bpm with no noted T-wave or ST abnormalities. -Troponin less than 0.012. -Cardiology consult, input appreciated. 2-D echo obtained results, Stress test pending -Telemetry monitoring -Daily aspirin and atorvastatin COPD with long-standing history of nicotine dependence without exacerbation -Chest x-ray showing chronic emphysematous changes without acute pulmonary pr ocess. -Duonebs as needed for breath and/or wheezing. -Incentive spirometry -Oxygenation as needed to maintain SpO2 equal to or greater than 90%. CODE STATUS: Full code DVT prophylaxis: Heparin Discussed with: Patient , case management and RN Anticipated discharge date: Likely tomorrow
[2021-05-16] MEDS: ATORVASTATIN 40 MG TAB PO SCH (21:11)
[2021-05-17] MEDS: HEPARIN SODIUM,PORCINE/PF 5,000 UNIT/0.5 ML SYRINGE SQ SCH ×2 (00:30→08:33)
[2021-05-17 08:17] VITALS: BP 107/55; RESP 18; TEMP 97.9
--- NOTE | 2021-05-17 08:27 | ECHOS ---
STRESS ECHOCARDIOGRAM INDICATIONS: Chest pain. BASELINE HEART RATE: 35 BASELINE BLOOD PRESSURE: 142/62 MAXIMUM HEART RATE: 140 MAXIMUM BLOOD PRESSURE: 153/74 85% MPHR: 137 100% MPHR: 161 METS: MAXIMUM STAGE REACHED: V TOTAL EXERCISE TIME: 13:52 CLINICAL INFORMATION: Baseline EKG shows sinus bradycardia, normal axis, normal intervals. Patient was given intravenous dobutamine over a period of 15 minutes as per protocol. Also received atropine, achieving 87% of predicted maximal heart rate. There was no ST-segment depression. Baseline echo shows mildly enlarged left ventricle with diffuse global hypokinesis with normal LV function with an ejection fraction of 50%. Post dobutamine infusion there is normal hyperdynamic response of all segments of myocardium noted. CONCLUSIONS: 1. Negative stress test by EKG criteria. 2. Negative dobutamine stress echo. MMODL / IJN: [id number] /
[2021-05-17] MEDS: ASPIRIN 81 MG PO SCH (08:33)
[2021-05-17] MEDS: PANTOPRAZOLE 40 MG TABLET PO SCH (08:33)
[2021-05-17 08:50] VITALS: PULSE 40
--- NOTE | 2021-05-17 11:40 | P.PN ---
Subjective Progress Note Date: 05/17/21 HISTORY OF PRESENT ILLNESS: This is a 60-year-old male with a past medical history significant for nicotine dependence. 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 We have been asked to see the patient in consultation for chest pain. Patient examined at the bedside. Patient is currently incarcerated. Patient states he has had chest pain on and off for the past 20 years since being tazzed by the police. He reports the pain increased about three days ago. He states the pain was a burning sensation in the middle of his chest and radiated to his left armpit. He states the pain is worse with chest wall palpation. Not worse with deep inspiration. He states the pain is improved with nitro paste. He states he had a stress test about 10 years ago that was normal to his knowledge. He is a current smoker and smokes about a pack a day. Denies drug or alcohol use. Denies family history of coronary artery disease. EKG on arrival was sinus bradycardia with a heart rate in the 30s. Patient states his heart rate has always ran low and about 10 years ago, a physician recommended a pacemaker but he declined. He denies dizziness or lightheadedness. He denies any syncopal episodes. EKG reveals sinus bradycardia with no signs of acute ischemia Chest xray chronic emphysematous changes without acute pulmonary process Laboratory data: WBC 5.8. Hemoglobin 14.5. Platelet count 195. Sodium 136. Potassium 4.2. BUN 17. Creatinine 0.90. Magnesium 2.1. Current home cardiac medications include none Echocardiogram completed revealed ejection fraction 50-55%. [id number] aortic regurgitation. Mild mitral regurgitation. Mild tricuspid regurgitation 05/17/2021 Patient examined this morning at bedside. Patient underwent stress test yesterday which was negative for ischemia. He denies any shortness of breath. He reports a brief episode of chest pain this morning. At the time of my examination he denies chest pain or pressure. PHYSICAL EXAM: VITAL SIGNS: Reviewed. GENERAL: Well-developed in no acute distress. HEENT: Head is normocephalic. Pupils are equal, round. Sclerae anicteric. Mucous membranes of the mouth are moist. Neck supple. No JVD or thyromegaly LUNGS: Respirations even and unlabored. Lungs essentially clear to auscultation bilaterally. HEART: Regular rate and rhythm. S1 and S2 heard. ABDOMEN: Soft. Nondistended. Nontender. EXTREMITIES: Normal range of motion. No clubbing or cyanosis. Peripheral pulses intact. No lower extremity edema NEUROLOGIC: Awake and alert. Oriented x 3. ASSESSMENT: Chest pain, atypical, troponin negative x 3 Asymptomatic bradycardia Nicotine dependence PLAN: Patient is stable for discharge from a cardiac standpoint We will sign off. Please reconsult if needed. Nurse practitioner note has been reviewed by physician. Signing provider agrees with the documented findings, assessment, and plan of care. Objective - Vital Signs Vital signs: Vital Signs Temp 97.9 F 05/17/21 07:00 Pulse 40 L 05/17/21 08:00 Resp 18 05/17/21 08:00 BP 107/55 05/17/21 07:00 Pulse Ox 98 05/17/21 07:00 Intake & Output 05/16/21 05/17/21 05/17/21 18:59 06:59 18:59 Intake Total 358 Balance 358 Intake: Oral 358 Other: Voiding Method Toilet Toilet Urinal Urinal # Voids 3 1 - Labs CBC & Chem 7: 05/16/21 07:32 05/16/21 07:32
--- NOTE | 2021-05-17 12:34 | P.DS ---
Providers Date of admission: 05/15/21 15:43 Expected date of discharge: 05/17/21 Attending physician: Rhoda Pritchard Primary care physician: Stated None Hospital Course: History of Presenting Illness: Patient is a 60-year-old male with a past medical history of nicotine dependence, COPD, and psychiatric disorders presented to the emergency department in custody of [employer] with a chief complaint of chest pain. Patient reports today while pacing back and fourth in his cell, he began to develop chest pain to his left anterior chest which radiated into his left axilla. Patient states this current episode of chest pain has been waxing and waning for the past 3 days and has been worse at night. He reports that he has had similar pain to this on and off for the past 20 years and he typically just takes an aspirin and it goes away, but when he told his [employer], they brought him to the ER to be evaluated. In the emergency department, an EKG was completed revealing sinus bradycardia at 39 bpm with no noted T-wave or ST abnormalities. Chest x-ray showing chronic emphysematous changes without acute pulmonary process. Troponin less than 0.012. CBC, CMP, and coagulation profile unremarkable. Patient received aspirin 324 mg by mouth 1 dose and Nitro-Bid ointment and admitted under our services with consultation to cardiology. Upon evaluation at bedside. Patient reports the chest pain felt like a burning sensation throughout the left side of his chest radiating into his axilla. Patient denies anything making this pain better, but states pain is worse at night when he lies down. He denies experiencing any diaphoresis, headache, lightheadedness, dizziness, changes in vision or hearing, palpitations, shortness of breath, dyspnea with exertion, abdominal pain, nausea, vomiting, or experiencing any numbness/tingling/weakness/swelling in his extremities. Vital signs stable with the exception of bradycardic rate. Hospital course and treatment: Patient was admitted to the hospital with chest pain. Cardiac enzymes were negative. 2-D echo was consistent with EF 50-55% [id number] aortic regurgitation. Mild mitral regurgitation. Mild tricuspid regurgitation He was cleared for discharge by cardiology. He'll be discharged back to the correctional facility on aspirin and statin. Diagnoses upon discharge: Bradycardia with history of bradycardia in the past, patient has previously refused pacemaker placement. Atypical Chest pain COPD with long-standing history of nicotine dependence without exacerbation Patient Condition at Discharge: Good Plan - Discharge Summary New Discharge Prescriptions: New Aspirin 81 mg PO DAILY 30 Days #30 cap Atorvastatin [Lipitor] 40 mg PO HS 30 Days #30 tab Discharge Medication List Aspirin 81 mg PO DAILY 30 Days #30 cap 05/17/21 [Rx] Atorvastatin [Lipitor] 40 mg PO HS 30 Days #30 tab 05/17/21 [Rx] Follow up Appointment(s)/Referral(s): None,Stated [Primary Care Provider] - 1-2 days Discharge Disposition: DC/TRANSFER COURT/LAW
== END 2021-05-17 13:13 ==
LOC: EC 13:54 → 1SOBS 15:43 → 6NMEDSUR 17:53
PROVIDERS: ADMIT Internal Medicine; ATTEND Internal Medicine
DX: R07.89 Other chest pain (principal); R00.1 Bradycardia, unspecified; I08.3 Combined rheumatic disorders of mitral, aortic and tricuspid valves; J44.9 Chronic obstructive pulmonary disease, unspecified; F17.210 Nicotine dependence, cigarettes, uncomplicated; F31.9 Bipolar disorder, unspecified; F41.9 Anxiety disorder, unspecified; Z91.19 Patient's noncompliance with other medical treatment and regimen; Z82.49 Family history of ischemic heart disease and other diseases of the circulatory system
CPT/HCPCS: 96372 ×3; 99285; 36415; 93005; 93306; 93351; 80061; 80053; 80048; 84443; 83735 ×2; 84484; 85025; 85027; 85610; 85730; 71046; G0378 ×4; J1250; J0461; J1644 ×2

== ENCOUNTER 2021-05-17 14:35 | Emergency (ER) | payer OTHER ==
[2021-05-17 14:41] VITALS: RESP 18
--- NOTE | 2021-05-17 15:37 | ED ---
General Adult HPI - General Chief complaint: Chest Pain Stated complaint: Chest Pain Time Seen by Provider: 05/17/21 14:40 Source: patient, police, RN notes reviewed, old records reviewed Mode of arrival: ambulatory Limitations: no limitations - History of Present Illness Initial comments: This is a 60-year-old male who presents to us again from assisted. Patient was discharged at 2:15 and returned here at about 3:00. Patient came in yesterday for chest pain and bradycardia cardiology evaluate him get a stress test and an echo and patient did not want a pacemaker and patient continues not to want a pacemaker. Patient also states he has a long history of bradycardia. Patient states his chest pain is still there but it's always there for the last 15-20 years and it's a 5 out of 10 which it always is. Patient states yesterday it was a little worse and he came in but since then has been back to its baseline. Patient went to assisted with the [employer] and when he got there his heart rate was 40 and so the nurse would not accept him and sent him back to the emergency department even though the patient's symptoms had not changed since his discharge - Related Data Previous Rx's Medication Instructions Recorded Aspirin 81 mg PO DAILY 30 Days #30 cap 05/17/21 Atorvastatin [Lipitor] 40 mg PO HS 30 Days #30 tab 05/17/21 Allergies Allergy/AdvReac Type Severity Reaction Status Date / Time No Known Allergies Allergy Verified 05/17/21 14:41 Review of Systems ROS Statement: Those systems with pertinent positive or pertinent negative responses have been documented in the HPI. ROS Other: All systems not noted in ROS Statement are negative. Past Medical History Past Medical History: COPD, Hyperlipidemia History of Any Multi-Drug Resistant Organisms: None Reported Past Surgical History: No Surgical Hx Reported Past Psychological History: Anxiety, Bipolar, Depression Smoking Status: Current every day smoker Past Alcohol Use History: None Reported Past Drug Use History: Marijuana General Exam - General Exam Comments Initial Comments: GENERAL: Patient is well-developed and well-nourished. Patient is nontoxic and well-hydrated and is in no acute distress. ENT: Neck is soft and supple. No significant lymphadenopathy is noted. Oropharynx is clear. Moist mucous membranes. Neck has full range of motion without eliciting any pain. EYES: The sclera were anicteric and conjunctiva were pink and moist. Extraocular move ments were intact and pupils were equal round and reactive to light. Eyelids were unremarkable. PULMONARY: Unlabored respirations. Good breath sounds bilaterally. No audible rales rhonchi or wheezing was noted. CARDIOVASCULAR: Patient is bradycardic in the 40s ABDOMEN: Soft and nontender with normal bowel sounds. SKIN: Skin is clear with no lesions or rashes and otherwise unremarkable. NEUROLOGIC: Patient is alert and oriented x3. Cranial nerves II through XII are grossly intact. Motor and sensory are also intact. Normal speech, volume and content. Symmetrical smile. MUSCULOSKELETAL: Normal extremities with adequate strength and full range of motion. No lower extremity swelling or edema. No calf tenderness. LYMPHATICS: No significant lymphadenopathy is noted PSYCHIATRIC: Normal psychiatric evaluation. Limitations: no limitations Course Vital Signs 05/17/21 14:37 Temperature 98.1 F Pulse Rate 44 L Respiratory 18 Rate Blood Pressure 121/61 O2 Sat by Pulse 97 Oximetry Medical Decision Making - Medical Decision Making EKG shows sinus bradycardia with occasional PVC at 49 bpm WV interval 232 QRS is 84 Q-T intervals 462 QTC is 417. Patient's EKG shows no ST segment patient or depression. I spoke with Dr. Angeles he was in agreement with sending the patient back to assisted. Patient did not want a pacemaker. Patient said his chest pain today was the same as it spent the last 15-20 years. - Lab Data Result diagrams: 05/17/21 15:30 05/17/21 15:30 Lab Results 05/17/21 05/17/21 05/17/21 Range/Units 15:30 15:30 15:30 WBC 7.2 (3.8-10.6) k/uL RBC 4.96 (4.30-5.90) m/uL Hgb 16.0 (13.0-17.5) gm/dL Hct 47.6 (39.0-53.0) % MCV 96.1 (80.0-100.0) fL MCH 32.3 (25.0-35.0) pg MCHC 33.6 (31.0-37.0) g/dL RDW 11.8 (11.5-15.5) % Plt Count 224 (150-450) k/uL MPV 7.6 Neutrophils % 60 % Lymphocytes % 29 % Monocytes % 5 % Eosinophils % 3 % Basophils % 2 % Neutrophils # 4.4 (1.3-7.7) k/uL Lymphocytes # 2.1 (1.0-4.8) k/uL Monocytes # 0.4 (0-1.0) k/uL Eosinophils # 0.2 (0-0.7) k/uL Basophils # 0.1 (0-0.2) k/uL Sodium 138 (137-145) mmol/L Potassium 4.7 (3.5-5.1) mmol/L Chloride 101 (98-107) mmol/L Carbon Dioxide 26 (22-30) mmol/L Anion Gap 11 mmol/L BUN 22 H (9-20) mg/dL Creatinine 1.39 H (0.66-1.25) mg/dL Est GFR (CKD-EPI)AfAm 64 (>60 ml/min/1.73 sqM) Est GFR (CKD-EPI)NonAf 55 (>60 ml/min/1.73 sqM) Glucose 90 (74-99) mg/dL Calcium 10.1 (8.4-10.2) mg/dL Magnesium 2.0 (1.6-2.3) mg/dL Total Bilirubin 0.6 (0.2-1.3) mg/dL AST 28 (17-59) U/L ALT 14 (4-49) U/L Alkaline Phosphatase 74 (38-126) U/L Troponin I 0.013 (0.000-0.034) ng/mL Total Protein 7.5 (6.3-8.2) g/dL Albumin 4.5 (3.5-5.0) g/dL Disposition Clinical Impression: Chronic chest pain, Bradycardia Disposition: HOME SELF-CARE Condition: Good Instructions (If sedation given, give patient instructions): Chest Pain (ED) Is patient prescribed a controlled substance at d/c from ED?: No Referrals: None,Stated [Primary Care Provider] - 1-2 days Time of Disposition: 16:13
[2021-05-17 15:41] LABS: Basophils # (A) 0.1 k/uL (0-0.2); Basophils % (A) 2 %; Eosinophils # (A) 0.2 k/uL (0-0.7); Eosinophils % (A) 3 %; HCT 47.6 % (39.0-53.0); Lymphocytes # (A) 2.1 k/uL (1.0-4.8); Lymphocytes % (A) 29 %; MCH 32.3 pg (25.0-35.0); MCHC 33.6 g/dL (31.0-37.0); MCV 96.1 fL (80.0-100.0); Mean Platelet Volume 7.6; Monocytes # (A) 0.4 k/uL (0-1.0); Monocytes % (A) 5 %; Neutrophils # (A) 4.4 k/uL (1.3-7.7); Neutrophils % (A) 60 %; Platelet Count 224 k/uL (150-450); RBC 4.96 m/uL (4.30-5.90); RDW 11.8 % (11.5-15.5); WBC 7.2 k/uL (3.8-10.6)
[2021-05-17 15:51] LABS: Albumin 4.5 g/dL (3.5-5.0); Calcium 10.1 mg/dL (8.4-10.2); Total Bilirubin 0.6 mg/dL (0.2-1.3); Total Protein 7.5 g/dL (6.3-8.2)
[2021-05-17 15:55] LABS: Potassium 4.7 mmol/L (3.5-5.1)
[2021-05-17 16:48] VITALS: BP 140/77; PULSE 82; TEMP 97.9
== END 2021-05-17 16:48 | disposition home or self-care (01) ==
LOC: EC 14:35
DX: R07.9 Chest pain, unspecified (principal); G89.29 Other chronic pain; R00.1 Bradycardia, unspecified; J44.9 Chronic obstructive pulmonary disease, unspecified; F17.200 Nicotine dependence, unspecified, uncomplicated
CPT/HCPCS: 36415; 80053; 83735; 84484; 85025; 93005; 99285